=== PATIENT | male | born 1990 | race Caucasian/White ===

== ENCOUNTER 2020-12-19 15:39 | Emergency (ER) | payer OTHER, SELFPAY ==
--- NOTE | 2020-12-19 15:46 | ED.GENADULT ---
HPI - General Adult General Chief complaint: Upper Respiratory Infection Stated complaint: Congestion Time Seen by Provider: 12/19/20 15:46 Source: patient Mode of arrival: ambulatory Limitations: no limitations History of Present Illness HPI narrative: 30-year-old male patient presents to the [facility] with complaints of cold symptoms for the past 6 days. Patient states he has had fatigue, nausea and congestion. Patient states he was running a fever as high as 101 the first day or 2 of the symptoms. Denies any coughing, chest pain or shortness of breath at this time. Denies any vomiting or diarrhea. Denies any abdominal pain. Patient states the nausea is not new and is typically chronic for him. Patient denies taking anything for his symptoms. Patient denies getting the flu shot this year. Related Data Home Medications Medication Instructions Recorded Confirmed No Home Medications 12/19/20 12/19/20 Allergies Allergy/AdvReac Type Severity Reaction Status Date / Time No Known Allergies Allergy Verified 12/19/20 15:57 Review of Systems Review of Systems: Narrative: CONSTITUTIONAL: Positive subjective fever, denies chills, or sweats. EYES: Denies visual changes, redness, or discharge. ENT: Denies rhinorrhea, positive congestion, denies sore throat, or otalgia. CARDIOVASCULAR: Denies chest pain, palpitations, or edema. RESPIRATORY: Denies cough or dyspnea. GASTROINTESTINAL: Denies abdominal pain, positive nausea, denies vomiting, or diarrhea. GENITOURINARY: Denies dysuria or hematuria. SKIN: Denies rash or itching. MUSCULOSKELETAL: Denies back pain, joint pain, or myalgia. NEUROLOGIC: Denies headache, numbness, or weakness. Positive fatigue PSYCHIATRIC: Denies anxiety or depression. [facility] Past Medical History Medical History (Updated 12/19/20 @ 16:08 by BILLY Rdz) Anxiety GERD (gastroesophageal reflux disease) Substance abuse IV heroin and synthetic marijuana Social History Social History Smoking status: Light tobacco smoker Alcohol intake: never Gender identity (if verbalized by the patient): Male Comments At the time of my signature I agree with nursing past medical history, surgical, social, and family history. There is no relevant family history pertinent to the presenting complaint. Exam Narrative: Exam Narrative: GENERAL: Well-appearing, well-nourished, and in no acute distress. HEAD: Normocephalic, atraumatic. EYES: PERRLA and EOMI. ENT: Nares clear, no rhinorrhea or epistaxis. Mucous membranes moist. Posterior pharynx with no erythema, tonsil enlargement, exudates or lesions present. Bilateral TMs are clear no erythema or foreign bodies in the canal. NECK: Supple. No lymphadenopathy CHEST: Clear to auscultation. No respiratory distress. HEART: Regular rate and rhythm. No murmur heard. Normal peripheral pulses. ABDOMEN: Soft, nontender, nondistended, normal active bowel sounds. EXTREMITIES: Normal range of motion. No edema. SKIN: Warm, dry, no rash. NEURO: No focal deficits. Alert and oriented x3. Course Vital Signs Vital signs: Vital Signs Temperature 36.6 C 12/19/20 15:53 Pulse Rate 81 12/19/20 15:53 Respiratory Rate 18 12/19/20 15:53 Blood Pressure 118/65 12/19/20 15:53 Pulse Oximetry 99 12/19/20 15:53 Temperature 36.6 C 12/19/20 15:53 Pulse Rate 81 12/19/20 15:53 Respiratory Rate 18 12/19/20 15:53 Blood Pressure 118/65 12/19/20 15:53 Pulse Oximetry 99 12/19/20 15:53 Vital signs reviewed Medical Decision Making Differential Diagnosis Differential Diagnosis: Differential diagnosis: Allergic rhinitis, chronic sinusitis, tonsillitis, acute sinusitis, infectious mononucleosis, seasonal influenza, pertussis, diphtheria, meningococcal disease, viral syndrome, viral bronchitis, RSV. Discussed with patient that we did do a rapid Covid test on him which did come back negative. Alison
[2020-12-19 15:53] VITALS: BP 118/65; PULSE 81; RESP 18; TEMP 36.6; O2SAT 99
[2020-12-20 18:19] LABS: SARS-CoV-2 RNA PCR Negative
== END 2020-12-19 16:11 | disposition home or self-care (01) ==
PROVIDERS: Emergency Provider Nurse Practitioner Family
DX: Z20.822 Contact with and (suspected) exposure to COVID-19 (principal); K21.9 Gastro-esophageal reflux disease without esophagitis
CPT/HCPCS: 87426; 99213; C9803; G0463; U0003; U0005

== ENCOUNTER 2021-07-07 17:09 | Emergency (ER) | payer OTHER, SELFPAY ==
[2021-07-07 17:20] VITALS: BP 116/61; PULSE 78; RESP 18; TEMP 36.4; O2SAT 98
--- NOTE | 2021-07-07 17:39 | ED.URI ---
HPI - URI/Sore Throat General Chief Complaint: Upper Respiratory Infection Stated Complaint: Sore throat,Cough,Headache Source: patient and RN notes reviewed Limitations: no limitations History of Present Illness HPI Narrative: The unvaccinated patient, a smoker/drinker, who is a weeklong history of congestion, cough ,myalgias with headache and scratchy sore throat. No fever, earache, wheezing, loss of taste/smell, S OB, vomiting/diarrhea, CP. Symptoms are mild, that is worse upon awakening. Related Data Allergies Allergy/AdvReac Type Severity Reaction Status Date / Time No Known Allergies Allergy Verified 07/07/21 17:21 Review of Systems Review of Systems: General/Constitutional: No weight loss,fever Eyes: N0: Redness,discharge Ears/Nose/Throat: No: Epistaxis,ear discharge Respiratory: Denies: Hemoptysis Gastrointestinal: No Vomiting, Bleeding-rectal Skin: No Lumps, eruption Neurologic: No Focal Weakness,Sz Hematologic: Denies: Petechiae/Purpura Psychiatric: No: Suicida ideationl All Other Systems: Reviewed and Negative [facility] Past Medical History Medical History (Updated 07/07/21 @ 20:33 by Rian Hooper MD) Anxiety GERD (gastroesophageal reflux disease) Substance abuse IV heroin and synthetic marijuana Social History Social History Smoking status: Light tobacco smoker Alcohol intake: never Gender identity (if verbalized by the patient): Male Comments At time of signature, agree with nursing past medical, surgical, social and family history. There is no relevant family history pertinent to the presenting complaint Exam Narrative: General Appearance: Well appearing, Well nourished EYE: PERRLA, Conjunctiva clear Ears: Auditory canal normal, TM normal Nose: Rhinorrhea, Mucousal erythema Mouth/Throat: MM moist, Uvula midline, Pharyngeal erythema Neck: Supple, No adenopathy Respiratory: No respiratory distress, Breath sounds equal, Clear to auscultation Cardiovascular: RRR, No JVD Musculoskeletal: Non tender, Normal strength Skin: Warm, Dry Neurological: A&O x3, CN II-XII intact Psychiatric: Normal mood, Normal affect Course Vital Signs Vital signs: Vital Signs Temperature 97.6 F 07/07/21 17:20 Pulse Rate 78 08/28/21 17:20 Respiratory Rate 18 07/07/21 17:20 Blood Pressure 116/61 07/07/21 17:20 Pulse Oximetry 98 07/07/21 17:20 Temperature 97.6 F 07/07/21 17:20 Pulse Rate 78 07/07/21 17:20 Respiratory Rate 18 07/07/21 17:20 Blood Pressure 116/61 07/07/21 17:20 Pulse Oximetry 98 07/07/21 17:20 MDM - URI/Sore Throat Lab Data Labs: Lab Results 07/07/21 Range/Units 18:00 POC SARS CoV-2 Ag Negative (Negative) Discharge Plan Discharge Clinical Impression: Bronchitis Rhinitis Qualifiers: Rhinitis type: acute Qualified Code(s): J00 - Acute nasopharyngitis [common cold] Patient Disposition: Home, Self-Care Condition: Stable Instructions: Acute Bronchitis (ED) Prescriptions: New benzonatate [Tessalon Perles] 100 mg capsule 100 mg PO TID Qty: 20 RF: 1 azelastine 137 mcg (0.1 %) aerosol,spray 137 mcg NASAL Q12H Qty: 30 RF: 0 Other Ambulatory Orders: SARS-CoV-2 RNA, Qual RT-PCR (Routine) Location: Determined by Patient Ordered By: Rian Hooper Follow-up/Referrals: PHYSICIAN,ACCOUNT MANAGER [employer] [Primary Care Provider] -
== END 2021-07-07 18:04 | disposition home or self-care (01) ==
PROVIDERS: Emergency Provider Emergency Medicine
DX: J40 Bronchitis, not specified as acute or chronic (principal); J00 Acute nasopharyngitis [common cold]; Z20.822 Contact with and (suspected) exposure to COVID-19; K21.9 Gastro-esophageal reflux disease without esophagitis
CPT/HCPCS: 87426; 99213; C9803; G0463

== ENCOUNTER 2021-10-09 09:01 | Emergency (ER) | payer OTHER, SELFPAY ==
[2021-10-09 09:17] VITALS: BP 113/83; PULSE 77; RESP 16; TEMP 36.5; O2SAT 100
[2021-10-09 09:34] LABS: Basophils Absolute Auto 0.1 K/mm3 (0.0-0.1); Basophils Percent Auto 0.6 % (0.2-1.2); Eosinophils Absolute Auto 1.1 K/mm3 (0-0.3); Eosinophils Percent Auto 14.1 % (0-4.4); Hematocrit 49.6 % (42.0-52.0); Hemoglobin 17.8 g/dL (14.0-18.0); Immature Granulocyte Absolute 0.01 K/mm3 (0.00-0.031); Immature Granulocyte Percent A 0.1 % (0-0.5); Lymphocytes Absolute Auto 1.98 K/mm3 (0.9-3.2); Lymphocytes Percent Auto 24.6 % (18.3-44.2); Mean Corpuscular HGB Conc 35.9 g/dl (32-36); Mean Corpuscular Hemoglobin 32.1 pg (26-34); Mean Corpuscular Volume 89.4 fl (80-100); Monocytes Absolute Auto 1.1 K/mm3 (0.1-0.6); Monocytes Percent Auto 13.9 % (2.6-8.5); Neutrophils Absolute Auto 3.8 K/mm3 (1.3-6.7); Neutrophils Percent Auto 46.7 % (45.5-73.1); Platelet Count Result 263 k/mm3 (150-375); Red Blood Count 5.55 M/mm3 (4.6-6.20); Red Cell Distribution Width 11.3 % (11.5-14.5); White Blood Count 8.1 K/mm3 (4.5-10.0)
[2021-10-09 09:58] LABS: Alanine Aminotransferase 25 U/L (4-50); Albumin Level 5.2 g/dL (3.5-5.1); Alkaline Phosphatase 81 U/L (38-126); Anion Gap 17 mmol/L (8-16); Aspartate Amino Transferase 38 U/L (17-59); Bilirubin,Total 0.7 mg/dL (0.2-1.3); Blood Urea Nitrogen 25 mg/dL (9-20); Calcium 10.6 mg/dL (8.4-10.2); Carbon Dioxide 24 mmol/L (22-30); Chloride 100 mmol/L (98-107); Estimated CRCL calculation 85 ml/min; Estimated Glomerular Filt Rate > 60; Glucose 146 mg/dL (65-110); Lipase 41 U/L (23-300); Potassium 3.8 mmol/L (3.4-5.0); Sodium 141 mmol/L (137-145)
[2021-10-09 10:06] LABS: Atypical Lymphocytes Present; Platelet Estimate Adequate (Adequate)
[2021-10-09] MEDS: SODIUM CHLORIDE 0.9% IV 1,000 ML 999 ML IV CONT ×2 (12:22)
[2021-10-09] MEDS: diphenhydrAMINE HCl INJ 50 MG/ML VIAL 25 MG IV PUSH (12:23)
--- NOTE | 2021-10-09 12:23 | PC.NURSE ---
pt refusing zofran because he states it does not help and it messes with the dopamine receptors in his brain. stated he already felt better as soon as iv fluids iniated.
--- NOTE | 2021-10-09 13:30 | ED.GENADULT ---
HPI - General Adult General Chief complaint: Abdominal Pain Stated complaint: Vomiting Time Seen by Provider: 10/09/21 11:51 Source: patient Mode of arrival: ambulatory Limitations: no limitations History of Present Illness HPI narrative: Patient is a 31-year-old male with history of CHS presenting with 3 to 4 days of nausea and vomiting. Patient reports that he is addicted to marijuana use in has been evaluated and had multiple lab works, imaging CT scans and other evaluations by multiple providers and no abnormal cause was ever found.he reports his symptoms are triggered by marijuana use. He states that he stopped heroin usage many years ago however he has not yet been able to stop marijuana use. Patient reports that he has been given Haldol in the past but it caused his all his muscles to cramp. Patient reports he generally does needs a few liters of fluids ending he is able to leave. Patient denies any blood or mucus in his stool, constipation or diarrhea. He denies any fevers, cough, shortness of breath, chest pain. Related Data Allergies Allergy/AdvReac Type Severity Reaction Status Date / Time No Known Allergies Allergy Verified 07/07/21 17:21 Review of Systems Review of Systems: CONSTITUTIONAL: Reports chills denies fever or sweats. EYES: Denies visual changes, redness, or discharge. ENT: Denies rhinorrhea, congestion, sore throat, or otalgia. CARDIOVASCULAR: Denies chest pain, palpitations, or edema. RESPIRATORY: Denies cough or dyspnea. GASTROINTESTINAL: Reports nausea and vomiting denies constipation or diarrhea. GENITOURINARY: Denies dysuria or hematuria. SKIN: Denies rash or itching. MUSCULOSKELETAL: Denies back pain, joint pain, or myalgia. NEUROLOGIC: Denies headache, numbness, dizziness, or weakness. PSYCHIATRIC: Denies anxiety or depression. [facility] Past Medical History Medical History (Updated 10/09/21 @ 14:34 by Rosanna Antonio PA-C) Anxiety GERD (gastroesophageal reflux disease) Substance abuse IV heroin and synthetic marijuana Social History Social History Smoking status: Light tobacco smoker Alcohol intake: never Gender identity (if verbalized by the patient): Male Exam Narrative: GENERAL: Thin, slightly unkempt. Holding emesis bag. HEAD: Normocephalic, atraumatic. EYES: PERRLA and EOMI. CHEST: Clear to auscultation. No respiratory distress. No wheezes rales or rhonchi HEART: Regular rate and rhythm. No murmur heard. Normal peripheral pulses. ABDOMEN: Soft, nontender, nondistended, normal active bowel sounds. EXTREMITIES: Normal range of motion. No edema. SKIN: Warm, dry, no rash. NEURO: No focal deficits. Alert and oriented x3. PSYCH: Normal mood and affect. Course Vital Signs Vital signs: Vital Signs Temperature 97.7 F 10/09/21 09:17 Pulse Rate 77 10/09/21 09:17 Respiratory Rate 16 10/09/21 09:17 Blood Pressure 113/83 10/09/21 09:17 Pulse Oximetry 100 10/09/21 09:17 Temperature 97.7 F 10/09/21 09:17 Pulse Rate 77 10/09/21 09:17 Respiratory Rate 16 10/09/21 09:17 Blood Pressure 113/83 10/09/21 09:17 Pulse Oximetry 100 10/09/21 09:17 Medical Decision Making MDM Narrative Medical decision making narrative: Patient refuses all antiemetics.. Patient has not had any continued vomiting over the past few hours. Patient antiemetic given. Patient reports he has Zofran at home if needed. Patient has been instructed to stop marijuana usage and seek help if needed. Patient does not have any signs of acute surgical abdomen. Patient abdomen is not tender or rigid. Patient instructed to return to emergency department if he has any emergent symptoms. Vital Signs Vital Signs: Vital Signs Temperature 97.7 F 10/09/21 09:17 Pulse Rate 77 10/09/21 09:17 Respiratory Rate 16 10/09/21 09:17 Blood Pressure 113/83 10/09/21 09:17 Pulse Oximetry 100 10/09/21 09:17 Temperature 97
[2021-10-09 14:21] LABS: Add Urine Microscopic? YES; Appearance Urine Clear (Clear); Bilirubin Urine Negative (Negative); Blood Urine Negative (Negative); Color Urine Yellow (Yellow); Glucose Urine UA Negative (Negative); Ketones Urine 1+ mg/dL (Negative); Leukocyte Esterase Ur Negative LEU/UL (Negative); Mucus Urine Rare /lpf; Nitrate Urine Negative (Negative); Protein Urine Negative (Negative); RBC Urine 0-2 /hpf (0-2); Specific Grav Ur 1.017 (1.001-1.035); Urobilinogen Urine Negative mg/dL (<2.0); WBC Urine 0-3 /hpf
--- NOTE | 2021-10-09 14:50 | PC.NURSE ---
pt refuses offer of prescription for zofran or reglan. pt requesting enough iv fluids to make him not have to drink for next 2 days. pt aware that he should be adequaltely hydrated at home but that he needs to continue hydration at home.
[2021-10-09 15:07] LABS: Amphetamine Screen Urine Negative (Negative); Barbiturate Screen Urine Negative (Negative); Benzodiazepines Screen Urine Positive (Negative); Cannabinoid Screen Urine Positive (Negative); Cocaine Screen Urine Negative (Negative); Methadone Screen Urine Negative (Negative); Opiate Screen Urine Negative (Negative); Phencyclidine Screen Urine Negative (Negative)
== END 2021-10-09 15:00 | disposition home or self-care (01) ==
PROVIDERS: Emergency Medicine; Physician Assistant; Emergency Provider Emergency Medicine
DX: R11.2 Nausea with vomiting, unspecified (principal); K21.9 Gastro-esophageal reflux disease without esophagitis; F41.9 Anxiety disorder, unspecified
CPT/HCPCS: 36415; 80053; 80307; 81001; 83690; 85025; 96361; 96374; 99284; J1200; J7030

== ENCOUNTER 2022-11-15 15:07 | Emergency (ER) | payer OTHER, SELFPAY ==
[2022-11-15 15:34] VITALS: BP 118/71; PULSE 112; RESP 18; TEMP 37.2; O2SAT 100
--- NOTE | 2022-11-15 16:08 | ED.ABDPAIN ---
HPI - Abdominal Pain General Chief Complaint: Abdominal Pain Stated Complaint: abdominal pain Time Seen by Provider: 11/15/22 16:08 Source: patient and RN notes reviewed Mode of arrival: ambulatory Limitations: no limitations History of Present Illness HPI narrative: 32-year-old male presented for complaint of abdominal pain, nausea, and vomiting for 1 week. Patient states I have issues like this. Stating he believes he has cannabinoid hyperemesis syndrome. Patient states that usually lasts days to 1 week. he states the pain becomes so severe he induces vomiting. He states I think what happened is my small intestine becomes inflamed from not getting enough water, then I drink a large amount of water, get bloated, and then make myself vomit due to the pain from bloating. He states it is like OCD. LBM 6 days, endorses decreased urine output. last normal food intake was over 6 days, stating he has had some bites of mashed potatoes and a grape since onset. He will drink large amounts of fluids then induce vomiting, states he has filled 11 gallon trash cans since onset. Denies emesis today. Smoked marijuana prior to arrival. Smokes about 5 cigarettes/day. Denies other drug use. Drinks about 5 beers/week. Related Data Home Medications Medication Instructions Recorded Confirmed bupropion HCl 150 mg tablet,12 hr 150 mg PO DAILY 11/15/22 11/15/22 sustained-release (Wellbutrin SR) Allergies Allergy/AdvReac Type Severity Reaction Status Date / Time No Known Allergies Allergy Verified 11/15/22 16:00 Review of Systems Review of Systems: CONSTITUTIONAL: Denies body aches, fever, chills ENT: Denies rhinorrhea, congestion CARDIOVASCULAR: Denies chest pain, palpitations, or edema. RESPIRATORY: Denies cough or dyspnea. GASTROINTESTINAL: Endorses abdominal pain, nausea, vomiting, Denies hematochezia, melena, hematemesis GENITOURINARY: Denies dysuria, hematuria, or CVA tenderness. SKIN: Denies rash, itching, or wounds. MUSCULOSKELETAL: Denies back pain, joint pain, or myalgia. NEUROLOGIC: Denies headache, numbness, tingling, or weakness. All systems reviewed & are unremarkable except as noted in HPI and below PMFSH Past Medical History Medical History Anxiety GERD (gastroesophageal reflux disease) Substance abuse IV heroin and synthetic marijuana Social History Social History Smoking status: Light tobacco smoker Alcohol intake: never Gender identity (if verbalized by the patient): Male Comments At time of signature, I have reviewed and agree with nursing past medical, surgical, social and family history unless otherwise noted. Please see nursing chart for further information. There is no relevant family history pertinent to the presenting complaint Exam Narrative: GENERAL: ill-appearing, and in no acute distress. Appears older than stated age EYES: EOMI. Conjunctivae normal. ENT: Mucous membranes pink and moist. CHEST: Clear to auscultation. HEART: Regular rate and rhythm. No murmur appreciated. Normal peripheral pulses. ABDOMEN: abd soft, nondistended, normal active bowel sounds. Does not appear to have significant pain to abdomen with palpation, but reports pain to opposite side of palpation; No guarding, asymmetry EXTREMITIES: Normal range of motion. No edema. SKIN: Warm, dry, no rash. Capillary refill normal. Normal skin turgor. NEURO: No focal deficits. Alert and oriented x3. PSYCH: anxious Course Course Emergency Course: Patient is aware of diagnosis, understands and agrees to treatment plan. Anticipatory guidance given. Patient agrees to follow-up as directed and is aware of reasons to seek care at the emergency department. Portions of this record may have been created with voice recognition software Level of Care: Express Care Visit Vital Signs Vital signs: Vit
[2022-11-15] MEDS: ONDANSETRON HCL ODT 4 MG TABLET SUBLINGUAL (16:25)
== END 2022-11-15 16:57 | disposition home or self-care (01) ==
PROVIDERS: Emergency Provider Nurse Practitioner Family; PCP Family Medicine
DX: R10.9 Unspecified abdominal pain (principal); F17.210 Nicotine dependence, cigarettes, uncomplicated; F41.9 Anxiety disorder, unspecified; K21.9 Gastro-esophageal reflux disease without esophagitis
CPT/HCPCS: 99213; A9270; G0463

== ENCOUNTER 2024-10-20 11:42 | Emergency (ER) | payer OTHER, SELFPAY ==
[2024-10-20 12:00] VITALS: BP 125/70; PULSE 66; RESP 16; TEMP 36.7; O2SAT 100
--- NOTE | 2024-10-20 12:39 | ED_ITS ---
HPI - Nausea/Vomiting/Diarrhea General Chief complaint: Nausea/Vomiting/Diarrhea Stated complaint: fever/vomiting Time Seen by Provider: 10/20/24 12:26 Source: patient and RN notes reviewed Mode of arrival: ambulatory Limitations: no limitations History of Present Illness HPI Narrative: Patient presents today complaining of hundreds of episodes of vomiting for the last 2 days. States he has been 8-9 hours in the bathroom yesterday vomiting. He is also complaining of subjective fever, body aches, and epigastric discomfort. Reports he has had several episodes such as this every year since he was 17, then states he has episodes such as this when he has COVID or influenza and would like to be tested for these today. He has tried melatonin for his symptoms as he states if he can get back to sleep he can usually stop the cycle of his vomiting when he wakes up. He has been evaluated several times by gastroenterologists in the past he states have offered no help. He has also been to the ER several times in the past for fluids and antiemetics, and CTs with no definitive diagnosis of his symptoms. Patient states today is feeling much better. He has not had a vomiting episode since 9:00 a.m. this morning. He has been able to keep down fluids since that time. Related Data Allergies Allergy/AdvReac Type Severity Reaction Status Date / Time No Known Allergies Allergy Verified 10/20/24 12:10 Review of Systems Review of Systems: CONSTITUTIONAL: Denies fever, chills, or sweats.+ body aches EYES: Denies visual changes, redness, or discharge. ENT: Denies rhinorrhea, congestion, sore throat, or otalgia. CARDIOVASCULAR: Denies chest pain, palpitations, or edema. RESPIRATORY: Denies cough or dyspnea. GASTROINTESTINAL: Denies diarrhea.+ nausea, vomiting, epigastric discomfort GENITOURINARY: Denies dysuria or hematuria. SKIN: Denies rash, itching, or wounds. MUSCULOSKELETAL: Denies back pain, joint pain, or myalgia. NEUROLOGIC: Denies headache, numbness, tingling, or weakness. PSYCH: Denies depression or anxiety. [facility] Past Medical History Medical History Substance abuse IV heroin and synthetic marijuana GERD (gastroesophageal reflux disease) Anxiety Social History Social History Smoking status: Light tobacco smoker Alcohol intake: never Gender identity (if verbalized by the patient): Male Comments At time of signature, I have reviewed and agree with nursing past medical, surgical, social and family history unless otherwise noted. Please see nursing chart for further information. There is no relevant family history pertinent to the presenting complaint Exam Narrative: GENERAL: Well-appearing, well-nourished, and in no acute distress. HEAD: Normocephalic, atraumatic. EYES: EOMI. No redness or drainage. Conjunctivae normal. ENT: Mucous membranes pink and moist. Nares clear. No rhinorrhea. Throat normal. Uvula midline. NECK: Normal AROM. CHEST: No respiratory distress. Clear to auscultation. HEART: Regular rate and rhythm. No murmur appreciated. ABDOMEN: Soft, nontender, nondistended, normal active bowel sounds. EXTREMITIES: Normal range of motion. No edema. SKIN: Warm, dry, no rash. Capillary refill normal. Normal skin turgor. NEURO: No focal deficits. Alert and oriented x3. Gait steady. PSYCH: Normal affect. No signs of depression or anxiety. Course Course Level of Care: Express Care Visit Vital Signs Vital signs: Vital Signs Temperature 98.0 F 10/20/24 12:00 Pulse Rate 66 10/20/24 12:00 Respiratory Rate 16 10/20/24 12:00 Blood Pressure 125/70 10/20/24 12:00 Pulse Oximetry 100 10/20/24 12:00 Oxygen Delivery Room Air 10/20/24 12:00 Temperature 98.0 F 10/20/24 12:00 Pulse Rate 66 10/20/24 12:00 Respiratory Rate 16 10/20/24 12:00 Blood Pressure 125/70 10/20/24 12:00 Pulse Oximetry 100 10/20/24 12:00 Oxygen Delivery Room Air 10/20/24 12:00 Reviewed MDM - Nausea/Vomiting/Diarrhea MDM Narrative Medical decision making narrative: COVID and influenza negative. Patient is not currently vomiting. Prescription for Zofran sent to pharmacy, as patient states this has helped him in the past. This is a chronic issue for patient, not in acute one. He will manage his symptoms at home and will go to the ER if he develops any dehydration or worsening symptoms. Differential Diagnosis Differential diagnosis: Likely food poisoning, gastroenteritis, dehydration and other (Cyclic vomiting syndrome) Lab Data Attestation: I reviewed the patient's lab results. Lab results narrative: COVID and influenza negative Critical Care Time Critical Care Time Critical Care Time: No Discharge Plan Discharge Clinical Impression: Vomiting Qualifiers: Vomiting type: unspecified Nausea presence: with nausea Qualified Code(s): R11.2 - Nausea with vomiting, unspecified Patient Disposition: Home, Self-Care Condition: Stable Instructions: Acute Nausea and Vomiting (DC) Additional Instructions: Your COVID and influenza tests are negative today. Please take the Zofran if needed for any additional vomiting. Stay way from any foods that may be irritating to your esophagus or stomach such as citrus or tomato products, fried or salty foods, caffeine etc.. Follow-up with your PCP with any additional concerns. Your blood pressure was elevated above 120/80 today at Urgent Care. This puts you above the threshold for follow up. Please schedule a followup visit with your personal physician as soon as possible, for further evaluation and treatment. Even blood pressure exceeding 120/80 may indicate pre-hypertension. Patient Language: Sami Prescriptions: New ondansetron 4 mg tablet,disintegrating 4 mg PO TID PRN (Reason: nausea and vomiting) Qty: 15 0RF Follow-up/Referrals: PHYSICIAN,NUCLEAR TECHNICIAN [Primary Care Provider] - Stand Alone Forms: Work/School Release IP Time of Disposition: 12:41
[2024-10-20 13:04] LABS: EDINFLUASCREEN Negative (Negative); EDINFLUBSCREEN Negative (Negative)
[2024-10-20 14:03] LABS: EDCOVIDSCREEN Yes (Negative)
== END 2024-10-20 12:48 | disposition home or self-care (01) ==
PROVIDERS: Emergency Provider Nurse Practitioner; Referring Provider Emergency Medicine
DX: R11.2 Nausea with vomiting, unspecified (principal); Z20.822 Contact with and (suspected) exposure to COVID-19; F17.200 Nicotine dependence, unspecified, uncomplicated; K21.9 Gastro-esophageal reflux disease without esophagitis
CPT/HCPCS: 87426; 87804; 99213; G0463

== ENCOUNTER 2025-04-14 11:09 | Emergency (ER) | payer OTHER, SELFPAY ==
--- NOTE | 2025-04-14 11:15 | ED.ABDPAIN ---
HPI - Abdominal Pain General Chief Complaint: Abdominal Pain Stated Complaint: chest and stomach pain Time Seen by Provider: 04/14/25 11:20 Source: patient, RN notes reviewed and old records reviewed Mode of arrival: ambulatory Limitations: no limitations History of Present Illness HPI narrative: 35-year-old male presents to the [facility] with chronic abdominal pain. Has a history of abdominal pain, nausea vomiting. States that he has reduce the amount of marijuana intake. States he has seen multiple GI doctors with no diagnoses. Patient states that on Friday and Friday he had 2 episodes of left-sided chest pain with some shortness of breath and vomiting. Patient denies any symptoms today. States that he was hoping to come in to ?get things started. ? States that he is due to go back to work on Friday, has an appointment with primary care provider on Friday but wanted further evaluations before he return to work. Again patient with currently no symptoms during exam. States that he is out of Zofran and requesting a refill Related Data Allergies Allergy/AdvReac Type Severity Reaction Status Date / Time No Known Allergies Allergy Verified 04/14/25 11:19 Review of Systems Review of Systems: All systems reviewed & are unremarkable except as noted in HPI and below Constitutional: Constitutional: Reports no additional constitutional complaints ENT: Reports system reviewed and no additional complaints, except as documented Cardiovascular: Cardiovascular: Reports as per HPI, Reports chest pain and Reports dyspnea Respiratory: Respiratory: Reports no additional respiratory complaints, Denies chest congestion, Denies cough and Denies dyspnea Gastrointestinal: Gastrointestinal: Reports as per HPI, Reports abdominal pain, Reports nausea and Reports vomiting Musculoskeletal: Musculoskeletal: Reports no additional musculoskeletal complaints Integumentary/Breasts: Skin/Breast: Reports system reviewed and no additional complaints, except as docu [facility] Past Medical History Medical History Substance abuse IV heroin and synthetic marijuana GERD (gastroesophageal reflux disease) Anxiety Social History Social History Smoking status: Light tobacco smoker Alcohol intake: never Gender identity (if verbalized by the patient): Male Comments At the time of my signature, I reviewed and agree with the nursing past medical, surgical, social, and family history. There is no relevant family history pertinent to the patient complaint. Exam Const: General: cooperative, healthy appearing, comfortable, no acute distress, well developed, alert and well nourished Nutritional Appearance: well nourished Orientation/consciousness: patient oriented x3 Limitations: no limitations HENMT: Head: normal to inspection Ears: hearing grossly normal bilaterally, external ears normal, TM's normal bilaterally, EAC's normal, mastoids normal and no periauricular adenopathy Mouth: Yes Normal oral and palatal mucosa present, Yes lip normal, Yes tongue normal and Yes moist mucous membranes Throat: posterior oropharynx normal, uvula midline and no uvular edema Eyes: General: appearance normal, both eyes and all related structures Alignment and Position: alignment normal Neck: Neck: normal visual inspection, full ROM, no lymphadenopathy and no meningeal signs Chest: Chest palpation & inspection: normal inspection of the chest Resp: Effort & Inspection: normal respiratory effort and able to speak in complete sentences Auscultation: clear to auscultation bilaterally, no crackles, no rales, no rhonchi and no wheezes Cardio: Rate: regular rate GI: GI Palp: No abdominal tenderness Auscultation: normal bowel sounds Skin: General skin exam: normal color and no rashes or lesions noted Neuro: General: patient oriented x3, gait normal, moves all extremities and no meningeal signs Cognition (Neuro): normal cognition Speech: normal speech Gait exam (Neuro): Normal gait present Extrem: General: normal to inspection, full ROM, capillary refill normal and normal gait Psych: Appearance: grossly normal and well kempt Mental Status: mental status grossly normal Speech and movement: Normal speech and movement present and Clear speech present Affect: normal affect Attitude: cooperative Course Course Level of Care: Express Care Visit Vital Signs Vital signs: Vital Signs Temperature 97.9 F 04/14/25 11:17 Pulse Rate 86 04/14/25 11:17 Respiratory Rate 16 04/14/25 11:17 Blood Pressure 113/75 04/14/25 11:17 Pulse Oximetry 04/14/25 11:17 Temperature 97.9 F 04/14/25 11:17 Pulse Rate 86 04/14/25 11:17 Respiratory Rate 16 04/14/25 11:17 Blood Pressure 113/75 04/14/25 11:17 Pulse Oximetry 100 04/14/25 11:17 Reviewed MDM - Abdominal Pain MDM Narrative Medical decision making narrative: Patient sitting in exam room. Patient is not toxic in appearance. Patient presents with history of chronic abdominal pain. States that on Friday and Friday he had episodes of left-sided chest pain. Currently no symptoms. Was hoping to be evaluated and get referrals to GI and Cardiology. Has an appointment on Friday with his primary care provider. Explained that primary care doctor will make appropriate referrals. If symptoms return especially the chest pain he should be evaluated in the emergency room which he verbalized understanding Discharge instructions reviewed with patient, as well as provided in writing per nursing staff. The instructions also include specific and strict return/GO TO THE ER as well as f/u information. All questions have been answered, and the patient deny any further questions with discharge and discharge plan. Some parts of this dictation were generated by voice recognition software and may contain typographical and/or grammatical inaccuracies. Differential Diagnosis Differential diagnosis: Likely abdominal pain, gastroenteritis, pancreatitis and small bowel obstruction ECG Data EKG #1: Attestation: I personally reviewed and interpreted this ECG as follows: ECG completion date: 04/14/25 ECG completion time: 11:23 Prior ECG tracings: not available for review Interpretation: Sinus rhythm, incomplete right bundle branch block, borderline EKG, ventricular rate of 69, TN interval 150, QRS duration 98. No ST elevation or depression noted. Critical Care Time Critical Care Time Critical Care Time: No Discharge Plan Discharge Clinical Impression: Hx of abdominal pain, History of nausea and vomiting, Hx of chest pain Patient Disposition: Home Condition: Stable Instructions: Antibiotic Form, Acute Nausea and Vomiting (DC) Patient Language: Sierra Leonean Prescriptions: New ondansetron HCl 4 mg tablet 4 mg PO Q8H PRN (Reason: nausea and vomiting) Qty: 10 0RF No Action ondansetron 4 mg tablet,disintegrating 4 mg PO TID PRN (Reason: nausea and vomiting) Qty: 15 0RF Follow-up/Referrals: Schuyler,MD Rubén [Primary Care Provider] - 2 Weeks ([facility] follow up) Time of Disposition: 11:27
--- NOTE | 2025-04-14 11:16 | ECG_ITS ---
Test Date: 2025-04-14 11:23:38 Measurements Intervals [place] Rate: 69 P: 55 TX: 150 QRS: 90 QRSD: 98 T: 72 QT: 352 QTc: 379 Interpretive Statements SINUS RHYTHM INCOMPLETE RIGHT BUNDLE BRANCH BLOCK PEAKED T WAVES- CONSIDER HYPERKALEMIA BASELINE ARTIFACT- I, II, AVR, AVL, AVF ABNORMAL ECG No previous ECG available for comparison Electronically Signed On 04-14-2025 11:25:16 CDT by José Miguel Wright D.O.
[2025-04-14 11:17] VITALS: BP 113/75; PULSE 86; RESP 16; TEMP 36.6; O2SAT 100
== END 2025-04-14 12:25 | disposition home or self-care (01) ==
PROVIDERS: Emergency Provider Nurse Practitioner; PCP Family Medicine
DX: R10.9 Unspecified abdominal pain (principal); R11.2 Nausea with vomiting, unspecified; R07.9 Chest pain, unspecified
CPT/HCPCS: 93005; 99213; G0463

== ENCOUNTER 2025-05-28 16:04 | Emergency (ER) | payer OTHER, SELFPAY ==
--- OUTSIDE RECORDS SUMMARY | 2025-05-28 16:06 | XMS_ITS | Clinical Summary ---
Author Organization [facility] Address [address] [place] [address] Care Team Providers Care Wire Wheeler Name Role Phone None, Provider MD Primary Care Provider Unavaila ble Allergies No known active allergies Medications meclizine 25 MG tablet Take 25 mg by mouth 3 (three) times daily as needed. Active Capsaicin 0.05 % Gel Apply cream to abdomen when having symptoms up to four times a day. 60 g 9 Active buPROPion SR (WELLBUTRIN SR) 150 MG 12 hr tablet Take 150 mg by mouth 2 (two) times daily. 2 Active ondansetron (ZOFRAN-ODT) 4 MG disintegrating tablet Take 4 mg by mouth every 8 (eight) hours as needed for Nausea. Active Active Problems Problem Noted Date Diagnosed Date Hypokalemia 11/16/2022 Cannabis abuse 03/03/2022 Chronic abdominal pain 03/03/2022 Diarrhea of presumed infectious origin 7 Family History Medical History Relation Comments Hypothyroidism Mother Relation Status Comments Mother Social History Tobacco Use Types Packs/Day Years Used Date Smoking Tobacco: Every Day Smokeless Tobacco: Never Alcohol Use Standard Drinks/Week Comments Yes 0 (1 standard drink = 0.6 oz pur e alcohol) socially Humiliation, Afraid, Rape, and Kick questionnair e Answer Date Recorded Within the last year, have y ou been afraid of your partner or ex-partner? No 11/16/2022 Within the last year, have y ou been humiliated or emotionally abused in other ways by your partner or ex-partner? No Within the last year, have y ou been kicked, hit, slapped, or otherwise physically hurt by your partner or ex-partner? No 11/16/2022 Within the last year, have y ou been raped or forced to have any kind of sexual activity by your partner or ex-partner? No 11/16/2022 AUDIT-C Answer Date Recorded Frequency of Alcohol Consumption Never 08/23/2019 Average Number of Drinks Not on file 019 Frequency of Binge Drinking Not on file 08/10 Overall Financial Resource Strain (CARDIA) Answe r Date Recorded How hard is it for you to pa y for the very basics like food, housing, medical care, and heating? Not hard at all 11/16/2022 Hunger Vital Sign Answer Date Recorded Within the past 12 months, y ou worried that your food would run out before you got the money to buy more. Never true 11/16/19 23 Within the past 12 months, t he food you bought just didn't last and you didn't have money to get more. Never true 11/16/2022 PRAPARE - Transportation Answer Date Re corded In the past 12 months, has l ack of transportation kept you from medical appointments or from getting medications? No 05/2023 In the past 12 months, has l ack of transportation kept you from meetings, work, or from getting things needed for daily living? No 11/16/2022 Housing Stability Vital Sign Answer Odin e Recorded In the last 12 months, was t here a time when you were not able to pay the mortgage or rent on time? No 11/16/2022 In the last 12 months, how many places have you lived? 1 11/16/2022 In the last 12 months, was t here a time when you did not have a steady place to sleep or slept in a half-way (including now)? No 11/16/2022 Sex and Gender Information Value Date Recorded Sex Assigned at Not on file Legal Sex Male 7:38 PM CDT Gender Identity Not on file Sexual Orientation Not on file Last Filed Vital Signs Vital Sign Reading Time Taken Comments Blood Pressure 134/62 11/17/2022 5:00 AM WELDING ESTIMATOR Pulse 73 11/17/2022 7:00 AM WELDING ESTIMATOR Temperature 36.4 C (97.5 F) 11/17/2022 7:00 AM WELDING ESTIMATOR Respiratory Rate 16 11/17/2022 7:00 AM WELDING ESTIMATOR Oxygen Saturation 99% 11/17/2022 7:00 AM WELDING ESTIMATOR Inhaled Oxygen Concentration - - Weight 58.3 kg (128 lb 8.5 oz) 11/17/2022 5:00 A M WELDING ESTIMATOR Height 180.3 cm (5' 11) 11/15/2022 11:31 PM WELDING ESTIMATOR Body Mass Index 17.93 11/15/2022 11:31 PM WELDING ESTIMATOR Plan of Treatment Health Maintenance Due Date Last Done Comments Annual Physical 1995 Hepatitis C 2010 Hepatitis B Vaccines (1 of 3 - 19+ 3-dose series) 2011 Pneumococcal Vaccine: Pediatrics (0 to 5 Years) and At-Risk Patients (6 to 49 Years) (1 of 2 - PCV) 2011 COVID-19 Vaccine ( - 2023-2 5 season) 2024 DTaP, Tdap and Td Vaccines ( 2 - Td or Tdap) 02/06/2026 02/07/2016, 11/10/2015 HPV Vaccines Aged Out No longer eligi ble based on patient's age to complete this topic Meningococcal B Vaccine Aged Out No l onger eligible based on patient's age to complete this topic Meningococcal Vaccine Aged Out No moy aries eligible based on patient's age to complete this topic RSV Immunizations Under 20 Months Aged Out No longer eligible b ased on patient's age to complete this topic [place] [address] [place] [address] Advance Directives * Full Code (Latest Code Status on File) Date Activated Date Inactivated Comments 11/16/2022 9:00 AM 11/17/2022 2:43 PM Care Teams Wire Wheeler Relationship Specialty Start Date End Date None, Provider, PCP - General 08/23/19
--- OUTSIDE RECORDS SUMMARY | 2025-05-28 16:06 | XMS_ITS | Referral Summary ---
Author Organization [facility] Address [address] [place] [address] Care Team Providers Care Production Administrative Assistant Name Role Phone Jose Lagunas MD Primary Care Provider [phone] Allergies No known active allergies Medications raNITIdine (ZANTAC) 150 mg tablet 7 Active hyoscyamine ER (LEVBID) 0.375 mg 12 hr tabletIndicatio ns:diarrhea Take 0.375 mg by mouth every 12 (twelve) hours as needed for cramping. Active sodium, potassium & mag sulfates (SUPREP BOWEL KIT) 17.5-3.13-1.6 gram recon solnIndications :Bowel Evacuation Mix bottle of Suprep with water and drink at 4pm, repeat and drink at 10pm day before procedure 354 mL 7 Active Active Problems Problem Noted Date Diagnosed Date Generalized abdominal pain 06/12/2017 Diarrhea of presumed infectious origin 7 Social History Tobacco Use Types Packs/Day Years Used Date Smoking Tobacco: Every Day Cigarettes Smokeless Tobacco: Never Alcohol Use Standard Drinks/Week Comments Yes 0 (1 standard drink = 0.6 oz pur e alcohol) Personal Safety Answer Date Recorded Getting School Help Needed Not on file 01/22 Sex and Gender Information Value Date Recorded Sex Assigned at Not on file 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 Gender Identity Not on file Sexual Orientation Not on file Last Filed Vital Signs Vital Sign Reading Time Taken Comments Blood Pressure 104/60 06/12/2017 9:16 AM CDT Pulse 74 06/12/2017 9:16 AM CDT Temperature - - Respiratory Rate 16 06/12/2017 9:16 AM CDT Oxygen Saturation - - Inhaled Oxygen Concentration - - Weight 60.8 kg (134 lb 1.6 oz) 06/12/2017 9:16 A M CDT Height 177.8 cm (5' 10) 06/12/2017 9:16 AM CDT Body Mass Index 19.24 06/12/2017 9:16 AM CDT Plan of Treatment Not on file Insurance [facility] Care Teams Production Administrative Assistant Relationship Specialty Start Date End Date Jose Lagunas MD [address] [place] [id number] PCP - General 06/27/17
--- OUTSIDE RECORDS SUMMARY | 2025-05-28 16:06 | XMS_ITS | Clinical Summary ---
Author Organization [facility] Address [address] [place] [address] Care Team Providers Care Livestock Sales Representative Name Role Phone John PICKERING MD, Julio Santiago Primary Care Provider [phone] Source Comments [facility] [employer],non-owned Affiliates and Associated Physician Practices is amultiple site organization consisting of ambulatory clinics and hospital sitesin [place], [place], [place] and [place]. This disclosure is being madepursuant to the Care Everywhere program and may not contain all information available regarding this patient. Last updated 18.[facility] [employer] Allergies No known active allergies Medications * Be aware that medications may not be up to date on this document. Alwaysverify current medications with the patient. buPROPion SR 12hr (WELLBUTRIN-SR) 150 MG tablet Take 150 mg by mouth 2 times daily 02/20/2022 Active POTASSIUM PO Take by mouth once daily Active CALCIUM-MAGNESIU M-ZINC PO Take by mouth once daily Active [place]-3 Fatty Acids (FISH OIL PO) Take by mouth once daily Active Ferrous Sulfate (IRON PO) Take by mouth once daily Active Menaquinone-7 (VITAMIN K2 PO) Take by mouth once daily Active Multiple Vitamin (MULTIVITAMIN PO) Active Active Problems Problem Noted Date Diagnosed Date Marijuana abuse 03/03/2022 Chronic abdominal pain 03/03/2022 Immunizations Immunization Administration Dates Next Due TDAP (7yrs+) 02/07/2016 Family History Medical History Relation Name Comments Schizophrenia Paternal Grandmother Schizophrenia Paternal Uncle Relation Name Status Comments Paternal Grandmother Paternal Uncle Other Social History Tobacco Use Types Packs/Day Years Used Date Smoking Tobacco: Never Smokeless Tobacco: Never Alcohol Use Standard Drinks/Week Comments Yes 3 (1 standard drink = 0.6 oz pur e alcohol) PHQ-2 Answer Date Recorded PHQ2 TOTAL SCORE 0 02/27/2022 Sex and Gender Information Value Date Recorded Sex Assigned at Not on file 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 Gender Identity Not on file Sexual Orientation Not on file Last Filed Vital Signs Vital Sign Reading Time Taken Comments Blood Pressure 110/68 02/27/2022 1:45 PM CDT Pulse 89 02/27/2022 1:45 PM CDT Temperature 37.2 C (98.9 F) 02/27/2022 1:45 PM CDT Respiratory Rate - - Oxygen Saturation 97% 02/27/2022 1:45 PM CDT Inhaled Oxygen Concentration - - Weight 59.4 kg (131 lb) 02/27/2022 1:45 PM CDT Height - - Body Mass Index - - Plan of Treatment Health Maintenance Due Date Last Done Comments HIV SCREENING 2007 HEPATITIS C SCREENING 03/20/2010 HEPATITIS B VACCINE (1 of 3 - 19+ 3-dose series) 2011 HPV VACCINE (1 - 3-dose SCDM series) 2019 COVID-19 VACCINE ( - 2023-2 5 season) 2024 DEPRESSION SCREENING 11/10/2024 06/24/2022 INFLUENZA VACCINE (#1) 2025 DTAP/TDAP/TD VACCINES (2 - T d or Tdap) 02/06/2026 02/07/2016 ZOSTER VACCINE (1 of 2) 2042 HIB VACCINE Aged Out No longer eligi ble based on patient's age to complete this topic MENINGOCOCCAL (Group B) VACC INE SHARED DECISION-MAKING Aged Out No longer eligibl e based on patient's age to complete this topic MENINGOCOCCAL GROUPS A/C/Y/W VACCINE Aged Out No longer eligible b ased on patient's age to complete this topic PNEUMOCOCCAL VACCINE Aged Out No long er eligible based on patient's age to complete this topic Insurance [facility] Care Teams Livestock Sales Representative Relationship Specialty Start Date End Date Julio Lopez III, MD [address] [id number] PCP - General 12/28/21
--- OUTSIDE RECORDS SUMMARY | 2025-05-28 16:06 | XMS_ITS | Clinical Summary ---
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 Gender Identity Not on file Sexual Orientation Not on file Obstetrics History Last Filed Vital Signs Vital Sign Reading [...] 06/12/2017 9:16 AM CDT Plan of Treatment Health Maintenance Due Date Last Done Comments Hepatitis C Screening 1992 Varicella Vaccines (1 of 2 - 13+ 2-dose series) 2005 Hepatitis B Screening 2010 Regular Well Visit/Exam 18-64 2010 Pneumococcal vaccine <65 (1 of 2 - PCV) 2011 Depression Screening 06/12/2018 06/12/2017 Influenza Vaccine (#1) 2025 DTaP/Tdap/Td Vaccine (2 - Td or Tdap) 02/06/2026 02/07/2016 HPV Vaccines Aged Out No longer eligi ble based on patient's age to complete this topic Insurance [employer] Care Teams Shoe Repairman Relationship Specialty Start Date End Date Jose Lagunas MD [address] [place] [id number] [facility] - General 06/27/17
--- OUTSIDE RECORDS SUMMARY | 2025-05-28 16:06 | XMS_ITS | Data Portability ---
Author Organization [facility], Main Office Address [address] [place] [address] Care Team Providers Care Director Business Integration Name Role Phone PAYAN RUBÉN Primary Care Provider Assessment Encounter Date Assessment Date Assessment LastModified by Organization Details LastModified Time 07/23/2023 07/23/2023 D/w pt in detail about his findings and further plan of care. Explained about different options for this. Meds as directed. Advised pt to talk with close friend/family member on a regular basis. Educated about alarming symptoms to monitor at home and call us back Or get checked in ED. Pt verbalized understanding it. Cont f/u with Psych at [facility] as per schedule. F/u in few weeks as directed. [email or web address] Not available 07/23/2023 17:01:32 08/13/2023 08/13/2023 33 yo M with - WELL ADULT VISIT - ADHD - ANXIETY - IBS - FOOD ALLERGIES - SMOKER D/w pt in detail about his findings and further plan of care. Will do routine labs, cxr. Will refer pt to Industrial Con[employer]or Belt Repairer. Meds as directed. Advised pt to talk with close friend/family member on a regular basis. Educated about alarming symptoms to monitor at home and call us back Or get checked in ED. Pt verbalized understanding it. Diet and exercise explained in detail. Safe sex education given. F/u with Industrial Con[employer]or Belt Repairer as per schedule. Cont f/u with Psych at [facility] as per schedule. HM: Flu - Pt declined. Tdap, Gardasil - At pharmacy/HD. F/u in 2 weeks. Annual labs in 09/02. [email or web address] Not available 08/13/2023 09:40:04 09/04/2023 09/04/2023 33 yo M with - ADHD - ANXIETY - IBS - FOOD ALLERGIES - SMOKER Annual labs: 08/13/23. D/w pt in detail about his findings, recent labs and further plan of care. Meds as directed. Advised pt to talk with close friend/family member on a regular basis. Educated about alarming symptoms to monitor at home and call us back Or get checked in ED. Pt verbalized understanding it. Diet and exercise explained in detail. Safe sex education given. F/u with Industrial Con[employer]or Belt Repairer as per schedule. Cont f/u with Psych at [facility] as per schedule. HM: Flu - Pt declined. Tdap, Gardasil - At pharmacy/HD. F/u in 2-3 months. Annual labs in 09/02. [email or web address] Not available 09/04/2023 12:18:45 04/19/2025 04/19/2025 Educated pt about alarming symptoms to monitor at home. Not available 04/19/2025 11:29:33 Plan of Treatment Reminders Order Date Submit Date Provider Last Modified By Organization Details Last Modified Time Details Appointments Sick/Acut e 2024 04:15P M Rubén Payan MD Not available Not available Not available Lab vitamin D, 25-hydrox y, total, serum [address] (Lab), [address] [place], [address], 09/05/2023 08:59:17 HbA1c (hemoglob in A1c), blood [address] (Lab), [address] [place], [address], 09/05/2023 08:59:17 CMP, serum or plasma 2022 023 [facility] (Lab), [address] [place], [address], 08/13/2023 14:23:46 CBC w/ auto diff 2022 023 [facility] (Lab), [address] [place], [address], 08/13/2023 13:20:52 lipid panel, blood [address] (Lab), [address] [place], [address], 09/05/2023 08:59:17 TSH, serum, reflex free T4 [address] (Lab), [address] [place], [address], 09/05/2023 08:59:17 urinalysi s complete, reflex culture [address] (Lab), [address] [place], [address], 09/05/2023 08:59:17 Referral cardiolog ist referral - Please call patient to schedule an appointme nt. Thank you. 2024 025 [facility], [address], [address], [place], [address], 04/22/2025 13:01:02 health promotion coordinator referral 2022 023 [email or web address] u Care Physician Referral Management, [address] [facility] [address], [place], [address], 08/20/2023 08:01:09 Procedures None recorded. Surgeries None recorded. Imaging XR, chest, 2 view 2022 023 [id number] Not available 08/28/2023 09:27:29 Medication Orders ondansetr on HCl 4 mg tablet 2024 025 [email or web address] [facility], [address] [place], [place], [id number], 04/19/2025 11:29:09 famotidin e 20 mg tablet 2024 025 [id number], [address] [place] [address], [id number], 04/19/2025 11:23:26 buspirone 10 mg tablet 2022 023 [email or web address] [facility] #53765, [address] [place] [address], [id number], 04/19/2025 11:21:42 bupropion HCl SR 150 mg tablet,12 hr sustained -release [address] [facility]03062, [address] [place] [address], [id number], 04/19/2025 11:21:39 buspirone 10 mg tablet 2022 023 [email or web address] [facility] #66694, [address] [place] [address], [id number], 04/19/2025 11:21:42 bupropion HCl SR 150 mg tablet,12 hr sustained -release 2022 023 [email or web address] [facility] #72964, [address] [place] [address], [id number], 04/19/2025 11:21:39 Patient TargetsNo targets recorded. Patient Instructions Encounter Date Encounter Id Patient Instructions Last Modified By Organization Details Last Modified Time 07/23/2023 [id number] irritable bowel syndrome: care instructions [email or web address] Not available 07/23/2023 17:02:07 Reason for Referral Industrial Con[employer]or Belt Repairer Referral for Aller gy to food Referring Physician: [facility], Encounter Date: 08/13/2023 Library Clerk Referral for At ypical chest pain Chronic intermittent chest pain for last 2-3 yrs Please call patient to schedule an appointment. Thank you. Referring Physician: [facility], Encounter Date: 04/19/2025 Results Created Date Observation Date Name Description Value Unit Range Abnormal Flag Note LastModifiedBy Organization Detail LastModifiedTime 08/13/2008/13/2023 CBC/C OMPLE TE BLD COUNT W/DIF F white blood cells 6.9 x10'3 /uL 4.2-10 .8 Not Available [facility] (Lab) [address] [place], [address], 08/13/2023 13:20:52 08/13/2008/13/2023 CBC/C OMPLE TE BLD COUNT W/DIF F red blood cells 5.23 x10'6 /uL 4.10-5 .80 Not Available [facility] (Lab) [address] [place], [address], 08/13/2023 13:20:52 08/13/2008/13/2023 CBC/C OMPLE TE BLD COUNT W/DIF F hemoglobin 16.8 g/dL 13.2-1 7.0 Not Available [facility] (Lab) [address] [place], [address], 08/13/2023 13:20:52 08/13/2008/13/2023 CBC/C OMPLE TE BLD COUNT W/DIF F hematocrit 48.8 % 39.3-5 0.0 Not Available [facility] (Lab) [address] [place], [address], 08/13/2023 13:20:52 08/13/2008/13/2023 CBC/C OMPLE TE BLD COUNT W/DIF F mean red cell volume 93.3 fL 80.0-9 7.0 Not Available [facility] (Lab) [address] [place], [address], 08/13/2023 13:20:52 08/13/20 23 08/13/2023 CBC/C OMPLE TE BLD COUNT W/DIF F mean red cell hemoglobin 32.1 pg 27.0-3 3.0 Not Available [facility] (Lab) [address] [place], [address], 08/13/2023 13:20:52 08/13/2008/13/2023 CBC/C OMPLE TE BLD COUNT W/DIF F mean RBC HGB concentratio n 34.4 g/dL 31.0-3 6.0 Not Available [facility] (Lab) [address] [facility], [place], [address], 08/13/2023 13:20:52 08/13/2008/13/2023 CBC/C OMPLE TE BLD COUNT W/DIF F red cell distribution width 11.2 % 11.8-1 5.5 low Not Available [facility] (Lab) [address] [place], [address], 08/13/2023 13:20:52 08/13/2008/13/2023 CBC/C OMPLE TE BLD COUNT W/DIF F platelets 335 x10'3 /uL 150-40 0 Not Available [facility] (Lab) [address] [place], [address], 08/13/2023 13:20:52 08/13/20 23 08/13/2023 CBC/C OMPLE TE BLD COUNT W/DIF F mean platelet volume 9.3 fL 9.0-12 .4 Not Available [facility] (Lab) [address] [place], [address], 08/13/2023 13:20:52 08/13/2008/13/2023 CBC/C OMPLE TE BLD COUNT W/DIF F neutrophils 49.1 % 39.0-7 2.0 Not Available [facility] (Lab) [address] [place], [address], 08/13/2023 13:20:52 08/13/20 23 08/13/2023 CBC/C OMPLE TE BLD COUNT W/DIF F lymphocytes 31.5 % 16.0-4 7.0 Not Available [facility] (Lab) [address] [place], [address], 08/13/2023 13:20:52 08/13/2008/13/2023 CBC/C OMPLE TE BLD COUNT W/DIF F monocytes 13.0 % 5.0-12 .0 high Not Available [facility] (Lab) [address] [place], [address], 08/13/2023 13:20:52 08/13/2008/13/2023 CBC/C OMPLE TE BLD COUNT W/DIF F eosinophils 4.8 % 1.0-7. 0 Not Available [facility] (Lab) [address] [place], [address], 08/13/2023 13:20:52 08/13/2008/13/2023 CBC/C OMPLE TE BLD COUNT W/DIF F basophils 1.3 % 0.0-2. 0 Not Available [facility] (Lab) [address] [place], [address], 08/13/2023 13:20:52 08/13/2008/13/2023 CBC/C OMPLE TE BLD COUNT W/DIF F immature granulocytes 0.3 % 0.00-0 .50 Not Available [facility] (Lab) [address] [place], [address], 08/13/2023 13:20:52 08/13/2008/13/2023 CBC/C OMPLE TE BLD COUNT W/DIF F neutrophils, absolute count 3.37 x10'3 /uL 1.5-8. 0 Not Available [facility] (Lab) [address] [place], [address], 08/13/2023 13:20:52 08/13/2008/13/2023 CBC/C OMPLE TE BLD COUNT W/DIF F lymphocytes, absolute count 2.16 x10'3 /uL 1.07-3 .43 Not Available [facility] (Lab) [address] [place], [address], 08/13/2023 13:20:52 08/13/20 23 08/13/2023 CBC/C OMPLE TE BLD COUNT W/DIF F monocytes, absolute count 0.89 x10'3 /uL 0.29-0 .99 Not Available [facility] (Lab) [address] [place], [address], 08/13/2023 13:20:52 08/13/2008/13/2023 CBC/C OMPLE TE BLD COUNT W/DIF F eosinophils, absolute count 0.33 x10'3 /uL 0.02-0 .53 Not Available [facility] (Lab) [address] [place], [address], 08/13/2023 13:20:52 08/13/20 23 08/13/2023 CBC/C OMPLE TE BLD COUNT W/DIF F basophils, absolute count 0.09 x10'3 /uL 0.01-0 .08 high Not Available [facility] (Lab) [address] [place], [address], 08/13/2023 13:20:52 08/13/2008/13/2023 CBC/C OMPLE TE BLD COUNT W/DIF F immature granulocytes ,absolute 0.02 x10'3 /uL 0.00-0 .05 Not Available [facility] (Lab) [address] [place], [address], 08/13/2023 13:20:52 08/13/2008/13/2023 CBC/C OMPLE TE BLD COUNT W/DIF F nucleated red blood cells 0.0 % -0 Not Available [facility] (Lab) [address] [place], [address], 08/13/2023 13:20:52 08/13/2008/13/2023 CBC/C OMPLE TE BLD COUNT W/DIF F NRBC# 0.00 x10'3 /uL Not Available [facility] (Lab) [address] [place], [address], 08/13/2023 13:20:52 08/13/2008/13/2023 LIPID PANEL cholesterol 181 mg/dL 140-19 9 NIH FABIAN NSUS RECOM MENDA TION FOR SARAHI STERO L: ADULT CHILD LOW RISK: <200 <170 BORDE RLINE : <200- 239 ----- HIGH RISK: >240 >200 Not Available [facility] (Lab) [address] [place], [address], 08/13/2023 14:23:40 08/13/2008/13/2023 LIPID PANEL triglyceride s 88 mg/dL 0-150 NIH FABIAN NSUS REPOR T RECOM MENDA TION FOR TRIGL YCERI MARY ANNE: ADULT CHILD LOW RISK: <150 ----- BODER LINE: 150-1 99 ----- HIGH RISK: >200 ----- Not Available [facility] (Lab) [address] [place], [address], 08/13/2023 14:23:40 08/13/2008/13/2023 LIPID PANEL HDL cholesterol 45 mg/dL 40- Not Available [facility] (Lab) [address] [place], [address], 08/13/2023 14:23:40 08/13/2008/13/2023 LIPID PANEL LDL cholesterol, calculated 118 mg/dL 0-130 NIH FABIAN NSUS REPOR T RECOM MENDA TIONS FOR LDL: ADULT CHILD LOW RISK <130 <110 (OPTI MAL LDL) <100 ----- BORDE RLINE : 130-1 59 ----- HIGH RISK: >160 >130 A TRIGL YCERI DE RESUL T >400 INVAL IDATE S THE CALCU LATIO N FOR LDL FRACT IONAT ION - THE LDL RESUL T WILL NOT BE REPOR HOME. Not Available [facility] (Lab) [address] [place], [address], 08/13/2023 14:23:40 08/13/2008/13/2023 COMPR EHENS MIAH METAB OLIC PANEL sodium 141 mmol/ L 137-14 5 Not Available [facility] (Lab) [address] [place], [address], 08/13/2023 14:23:45 08/13/2008/13/2023 COMPR EHENS MIAH METAB OLIC PANEL potassium 4.4 mmol/ L 3.5-5. 1 Not Available [facility] (Lab) [address] [place], [address], 08/13/2023 14:23:45 08/13/2008/13/2023 COMPR EHENS MIAH METAB OLIC PANEL chloride 105 mmol/ L 98-107 Not Available [facility] (Lab) [address] [place], [address], 08/13/2023 14:23:45 08/13/2008/13/2023 COMPR EHENS MIAH METAB OLIC PANEL carbon dioxide 27 mmol/ L 22-30 Not Available [facility] (Lab) [address] [place], [address], 08/13/2023 14:23:45 08/13/2008/13/2023 COMPR EHENS MIAH METAB OLIC PANEL anion gap 13.4 mmol/ L 14-22 low Not Available [facility] (Lab) [address] [place], [address], 08/13/2023 14:23:45 08/13/2008/13/2023 COMPR EHENS MIAH METAB OLIC PANEL glucose 90 mg/dL 70-99 Not Available [facility] (Lab) [address] [place], [address], 08/13/2023 14:23:45 08/13/20 23 08/13/2023 COMPR EHENS MIAH METAB OLIC PANEL BUN 17 mg/dL 8-19 Not Available [facility] (Lab) [address] [place], [address], 08/13/2023 14:23:45 08/13/20 23 08/13/2023 COMPR EHENS MIAH METAB OLIC PANEL creatinine 0.82 mg/dL 0.66-1 .25 Not Available [facility] (Lab) [address] [facility] [address], [place], [address], 08/13/2023 14:23:45 08/13/2008/13/2023 COMPR EHENS MIAH METAB OLIC PANEL GFR >60 Refer ence Range : [place] ge GFR Healt hy Adult : >60 mL/mi n/1.7 3 m2 Chron ic Kidne y Disea se: 15-60 mL/mi n/1.7 3 m2 Kidne y Failu re: <15/m L/min /1.73 m2 www.n iddk. nih.g ov The MDRD study equat ion has not been valid ated in child zachary <18 years of age; pregn ant women ; the elder ly >85 years of age; or in some racia l or ethni c subgr oups, such as nc nics. Outsi de the valid ated tracy eters , estim ated GFR is less accur ate, requi ring clini alexa judgm ent on a case- by-ca se basis . Clini alexa inter preta tion for other races and ages must be made by the clini bryce. The MDRD study equat ion has not been valid ated for the evalu ation of serum creat inine relat ed to nutri deysi l statu s or medic ation usage . For perso ns <18 years of age, a pedia tric GFR calcu lator is avail able on the F websi te: https ://rafia w.kalyan lam.o rg/pr ofess ional s/kdo qi/gf r_cal culat or Not Available [facility] (Lab) [address] [place], [address], 08/13/2023 14:23:45 08/13/2008/13/2023 COMPR EHENS MIAH METAB OLIC PANEL alkaline phosphatase 73 U/L 38-126 Not Available [facility] (Lab) [address] [place], [address], 08/13/2023 14:23:45 08/13/2008/13/2023 COMPR EHENS MIAH METAB OLIC PANEL alanine aminotransfe rase 25 U/L 0-50 Not Available [facility] (Lab) [address] [place], [address], 08/13/2023 14:23:45 08/13/2008/13/2023 COMPR EHENS MIAH METAB OLIC PANEL aspartate aminotransfe rase 29 U/L 15-46 Not Available [facility] (Lab) [address] [place], [address], 08/13/2023 14:23:45 08/13/2008/13/2023 COMPR EHENS MIAH METAB OLIC PANEL bilirubin, total 0.80 mg/dL 0.20-1 .30 Not Available [facility] (Lab) [address] [place], [address], 08/13/2023 14:23:45 08/13/2008/13/2023 COMPR EHENS MIAH METAB OLIC PANEL calcium 10.1 mg/dL 8.4-10 .2 Not Available [facility] (Lab) [address] [place], [address], 08/13/2023 14:23:45 08/13/2008/13/2023 COMPR EHENS MIAH METAB OLIC PANEL total protein 7.6 g/dL 6.3-8. 2 Not Available [facility] (Lab) [address] [place], [address], 08/13/2023 14:23:45 08/13/2008/13/2023 COMPR EHENS MIAH METAB OLIC PANEL albumin 4.8 g/dL 3.4-5. 0 Not Available [facility] (Lab) [address] [place], [address], 08/13/2023 14:23:45 08/13/2008/13/2023 COMPR EHENS MIAH METAB OLIC PANEL globulin 2.8 g/dL 2.6-4. 2 Not Available [facility] (Lab) [address] [place], [address], 08/13/2023 14:23:45 08/13/2008/13/2023 COMPR EHENS MIAH METAB OLIC PANEL A/G ratio 1.7 ratio 1.0-2. 0 Not Available [facility] (Lab) [address] [place], [address], 08/13/2023 14:23:45 08/13/2008/13/2023 VITAM IN D 25-HY DROXY [id number] 47.1 NG/mL 30-100 Vitam in D Statu s: Defic ient: <20 ng/mL Insuf ficie nt: 20-29 ng/mL Suffi cient : 30-10 0 ng/mL Not Available [facility] (Lab) [address] [place], [address], 08/13/2023 14:41:44 08/13/2008/13/2023 TSH W/REF SIDNEY FT4 TSH with reflex free T4 0.719 uIU/m L 0.465- 4.680 Not Available [facility] (Lab) [address] [place], [address], 08/13/2023 14:59:41 08/13/2008/13/2023 HEMOG LOBIN A1C HA1C 5.0 % 4.0-6. 0 Diabe michael Scree nani Crite mayco: <5.7% Consi stent with absen ce of diabe michael 5.7-6 .4% Consi stent with incre ased risk for diabe michael (pred iabet es) >OR=6 .5% Consi stent with diabe michael REFER ENCE: Diabe michael Care 2016, 39(Johnson ppl.1 ):s13 -s22 Not Available [facility] ([facility]) [address] [facility], [address], [place], [address], 08/13/2023 20:31:58 Result Notes None recorded. Problems Name Problem SNOMED Code Status Onset Date Resolution Date Notes Provider Name and Address Organization Details Recorded Time Attention deficit hyperactivity disorder, predominantly inattentive type 90315680 Active 2022 Rubén Payan MD [address], [address], [place], [address], [employer] 3 16:45:55 Anxiety disorder 971534439 Active 2022 Rubén Payan MD [address], [address], [place], [address], [employer] 3 16:46:00 Irritable bowel syndrome 76959652 Active 2022 Rubén Payan MD [address], [address], [place], [address], [employer] 5 11:15:43 Smoker 45202968 Active 2022 Rubén Payan MD [address], [address], [place], [address], [employer] 3 16:47:21 Allergy to food 142255167 Active 2022 Rubén Payan MD [address], [address], [place], [address], [employer] 3 09:31:09 Muscle tension pain 821434234 Active 2024 Rubén Payan MD [address], [address], [address], [facility] 5 11:16:25 Gastroesophage al reflux disease without esophagitis 968845441 Active 2024 Rubén Payan MD [address], [address], [place], [address], [facility] [employer] [facility] [employer] 5 11:16:47 Atypical chest pain 829598170 Active 2024 Rubén Payan MD [address], [address], [place], [address], [employer] [facility] 5 11:18:25 Nausea 610435420 Active 2024 Rubén Payan MD [address], [address], [place], [address], [employer] [facility] 5 11:22:00 Family history of stroke 214159548 Active 2024 Rubén Payan MD [address], [address] [address], [place], [address], [employer] [facility] 5 11:28:17 Problem Notes None recorded. Procedures Surgical History Date Name Laterality Status Provider Name and Address Organization Details Recorded Time 3 Smoking Cessation completed Rubén Payan MD [address], [address] [address], [place], [address], [employer] [facility] 07/23/2023 16:50:32 Imaging Results None recorded. Procedure Notes None recorded. Medical Equipment None Reported. Allergies No known drug allergies Medications Name Sig Start Date Stop Date Status Note LastModified by Organization Details LastModified Time bupropion HCl SR 150 mg tablet,12 hr sustained-r elease TAKE 1 TABLET BY MOUTH TWICE DAILY DIRECTED 04/19 completed Not Available Not Available Not Available ondansetron HCl 4 mg tablet TAKE 1 TABLET BY MOUTH EVERY DAY FOR 20 DAYS NEEDED active Not Available Not Available No t Available famotidine 20 mg tablet TAKE 1 TABLET BY MOUTH TWICE DAILY DIRECTED active Not Available Not Available No t Available buspirone 10 mg tablet TAKE 1 TABLET BY MOUTH EVERY 12 HOURS NEEDED 04/19 completed Not Available Not Available Not Available methylpredn isolone 4 mg tablets in a dose pack TAKE DIRECTED 07/23 completed Not Available Not Available Not Available PreviDent 5000 Plus 1.1 % cream BRUSH TWICE DAILY 07/23 completed Not Available Not Available Not Available ondansetron 4 mg disintegrat ing tablet DISSOLVE 1 TABLET ON THE TONGUE EVERY 8 HOURS NEEDED FOR NAUSEA OR VOMITING 07/23 completed Not Available Not Available Not Available Vitals Date Recorded Body height Body mass index (BMI) Body weight Body temperature Oxygen saturation Oxygen saturation in Arterial blood by Pulse oximetry Heart rate Systolic And Diastolic Provider Name and Address Organization Details Last Updated DateTime 5 180.34 cm 19.4 kg/m2 89609.3 9 g 98.1 [degF] 99 % 99 % 62 /min 112/70 mm[Hg] Pratima Persaud RN [facility] 5 11:11:57 Date Recorded Body weight Body temperature Heart rate Respiratory rate Oxygen saturation Oxygen saturation in Arterial blood by Pulse oximetry Systolic And Diastolic Provider Name and Address Organization Details Last Updated DateTime 3 47831.6 9 g 97.1 [degF] 79 /min 16 /min 99 % 99 % 126/60 mm[Hg] [facility] 3 16:42:15 Date Recorded Body height Body mass index (BMI) Body weight Body temperature Heart rate Respiratory rate Oxygen saturation Oxygen saturation in Arterial blood by Pulse oximetry Systolic And Diastolic Provider Name and Address Organization Details Last Updated DateTime 3 175.26 cm 20 kg/m2 62499.6 7 g 98.1 [degF] 70 /min 16 /min 98 % 98 % 108/60 mm[Hg] [facility] 3 09:26:06 Date Recorded Body height Body mass index (BMI) Body weight Body temperature Heart rate Respiratory rate Oxygen saturation Oxygen saturation in Arterial blood by Pulse oximetry Systolic And Diastolic Provider Name and Address Organization Details Last Updated DateTime 3 175.26 cm 19.5 kg/m2 87660.5 4 g 98 [degF] 90 /min 16 /min 99 % 99 % 110/66 mm[Hg] [facility] 12:12:28 Social History Question Answer Notes LastModified by Organizat ion Details LastModified Time Tobacco Smoking Status Current Every Day Smoker Rubén Payan MD [address], [address] [address], [place], [address], [place] [facility] [employer] 07/23/2023 16:58:39 Do You Have An Advance Directive? No Information not available 07/23/2023 Is Blood Transfusion Acceptable In An Emergency? No Information not available 07/23/2023 What Is Your Code Status? Full Code Information not available 07/23/2023 In The 14 Days Before Symptom Onset, Have You Had Close Contact With A Laboratory-confi rmed COVID-19 While That Case Was Ill? No Information not available 07/23/2023 In The 14 Days Before Symptom Onset, Have You Had Close Contact With A Person Who Is Under Investigation For COVID-19 While That Person Was Ill? No Information not available 07/23/2023 What Type Of Diet Are You Following? REGULAR Information not available 07/23/2023 What Is The Highest Grade Or Level Of School You Have Completed Or The Highest Degree You Have Received? [id number] Information not available 07/23/2023 Have There Been Any Changes To Your Family Or Social Situation? Yes Information not available 07/23/2023 What Is The Fluoride Status Of Your Home? Unknown Information not available 07/23/2023 Are There Any Guns Present In Your Home? Yes Information not available 07/23/2023 Do You Use Insect Repellent Routinely? No Information not available 07/23/2023 Where Do You Live? SingleLevelHouse Information not available 07/23/2023 Do You Have A Medical Power Of Edge Setter? Yes Information not available 07/23/2023 What Is Your Relationship Status? Information not available 07/23/2023 Do You Use Your Seat Belt Or Car Seat Routinely? Yes Information not available 07/23/2023 Are You Sexually Active? Yes Information not available 07/23/2023 Do You Have Smoke And Carbon Monoxide Detectors In Your Home? Yes Information not available 07/23/2023 Are You Passively Exposed To Smoke? Yes Information not available 07/23/2023 Are There Any Smokers In Your House? Yes Information not available 07/23/2023 Do You Participate In Social Media? Yes Information not available 07/23/2023 Do You Use Sunscreen Routinely? Yes Information not available 07/23/2023 Have You Recently Traveled Abroad? No Information not available 07/23/2023 Sex: Male Functional Status None recorded. Mental Status Question Answer Note LastModified by Organization D etails LastModified Time Do you feel stressed (tense, restless, nervous, or anxious, or unable to sleep at night)? [id number] Information not available 07/23/2023 Family History Relationship Description Onset Age of this Age Resolved Age Notes LastModified by Organization Details LastModified Time Father No current problems or disability Not available 07/23 16:38:06 Mother No current problems or disability Not available 07/23 16:38:06 Medical History Condition Response BLINDNESS N RHEUMATIC FEVER N KIDNEY STONES N BLADDER PROBLEMS N MRSA N OTHER # 1 N POLIO N LUNG DISEASE/DISORDER N HISTORY OF DRUG ABUSE N COPD N RADIATION / CHEMOTHERAPY N Other # 2 N BLOOD DISEASES N SURGERY N EAR OR HEARING PROBLEMS N MUMPS N SHINGLES N FEMALE PROBLEMS / INFECTIONS N DEPRESSION (INCLUDING POST ) N BOWEL PROBLEMS N FAILED BACK SYNDROME N STROKE/TIA N THYROID DISEASE N ULCERS N BENIGN PROSTATIC HYPERPLASIA N MEASLES N CERVICALGIA N HYPOTENSION N TB SKIN TEST N MYOCARDIAL INFARCTION N OBESITY N PARAPELGIA N GERD/NAUSEA N ANEURYSM N URINARY/BLADDER/KIDNEY PROBLEMS N CORONARY ARTERY DISEASE (CAD) N Do you have Advance directive? N MENIERE'S DISEASE N ADDICTION CONCERNS N ENDOMETRIOSIS N USE OF BLOOD THINNERS N SKIN PROBLEMS N EMPHYSEMA N GASTROINTESTINAL DISORDER N PERIPHERAL ARTERY DISEASE N MUSCLE,JOINT OR BONE PROBLEMS N GASTROINTESTINAL BLEEDING N BLOOD CLOTS N ASTHMA N CATARACTS N Abdominal Pain N ERECTILE DYSFUNCTION N ARTERIAL INSUFFICIENCY N GI PROBLEMS N CHF N Low Testosterone N NEUROPATHY N INFERTILITY N AIDS/HIV N FRACTURES N CHEMOTHERAPY / RADIATION N VISION/EYE PROBLEMS N LIVER DISEASE N HYPERTENSION N TOURETTE'S N ANXIETY DISORDER N BLOOD TRANSFUSION N ANEMIA/BLOOD DISORDER N CHRONIC EAR INFECTIONS N BRONCHITIS N TUBERCULOSIS N GLAUCOMA N FOOT PROBLEM N DIVERTICULITIS N SLEEP APNEA N CHICKENPOX N ALLERGIES/HAYFEVER N BACK INJECTIONS N INFECTIOUS DISEASE N PROSTATE N HEART ARRHYTHMIA N ESRD N INSOMNIA N HIGH CHOLESTEROL / HYPERLIPIDEMIA N EYE PROBLEMS N HYPERTHYROIDISM N PVD N EATING DISORDER N EDEMA N CHRONIC PAIN SYNDROME N CAROTID BLOCKAGE N CONSTIPATION N BACK / NECK PROBLEMS N HAVE YOU BEEN HOSPITALIZED OR SEEN IN [facility] IN THE PAST YEAR ? N ATHEROSCLEROSIS N BREAST PROBLEMS N DIALYSIS N POLYCYSTIC OVARIES N ECZEMA N FIBROMYALGIA N OSTEOPOROSIS N ARTHRITIS N NO SIGNIFICANT PAST MEDICAL HISTORY N APPENDICITIS N DIABETES, TYPE N BAD TEETH N VON WILLIBRAND'S DISEASE N HEARTBURN / REFLUX N ADD/ADHD N AUTISM SPECTRUM DISORDER (ASD) N POST LAMINECTOMY SYNDROME N HEPATITIS / LIVER DISEASE N PULMONARY DISEASE N GOUT N SLEEP DISORDER N ALZHEIMER'S DISEASE N PAIN N DEMENTIA N HERPES N SEIZURES/EPILEPSY N HEADACHES/MIGRAINES N VASCULAR DISEASE N PACEMAKER N DIZZINESS N KIDNEY DISEASE N HEART DISEASE/HEART PROBLEMS N SCARLET FEVER N MULTIPLE SCLEROSIS N MENTAL DISORDER/ILLNESS N DEVELOPMENTAL OR BEHAVIORAL DISORDERS N NEUROPSYCHOLOGICAL N CANCER: SPECIFY N CARDIAC ARRHYTHMIA N PNEUMONIA N ATRIAL FIBRILLATION N Gall Stones N PULMONARY EMBOLISM N AUTOIMMUNE DISEASE N Past Encounters Encounter ID Performer Location Encounter Start Date Encounter Closed Date Diagnosis/Indication Diagnosis SNOMED-CT Code Diagnosis ICD10 Code Diagnosis Note [id number] Rubén Payan MD [address] [address] 07/23/2023 16:13:34 07/23/2023 17:01:08 Attention deficit hyperactivity disorder, predominantly inattentive type 03608150 F90.0 Anxiety disorder 06 F41.9 Irritable bowel syndrome 22282478 K58.9 Smoker 16282617 F17.850 [id number] Rubén Payan MD [address] [address] 08/13/2023 09:17:41 08/13/2023 09:56:20 Adult health examination 901142269 Z00.00 Smoker 65804103 F17.200 Screening for disorder 269417719 Z13.9 Diabetes m ellitus screening 741849552 Z13.1 Allergy to food 12540094 1 T78.1XXA Anxiety disorder 0000060 06 F41.9 [id number] Rubén Payan MD [facility] [address] [place] [address] 1 09/04/2023 12:04:38 09/04/2023 12:23:00 Smoker 89386276 F17.200 Allergy to food 01650768 1 T78.1XXA Anxiety disorder 6931976 06 F41.9 Attention deficit hyperactivity disorder, predominantly inattentive type 83767847 F90.0 [id number] Rubén Payan MD [facility] [address] [place] [address] 04/19/2025 10:59:00 04/19/2025 11:25:03 Irritable bowel syndrome 63501945 K58.9 Muscle tension pain 2790 84641 M79.10 Gastroesop hageal reflux disease without esophagitis 397250230 K21.9 Atypical chest pain 1025 30530 R07.89 Family his tory of stroke 728802437 Z82.3 Nausea 525500939 R11.0 Seen in department 18151 1009 Z76.89 Health Concerns Section Related Observation LastModified by Organization Detai ls LastModified Time None Recorded Concern Status LastModified by Organization Details LastModified Time None Recorded Advance Directives Directive N: Payers Insurance Date Sequence Insurance Name Policy Number Policy Vee Covered Member ID Vee Member ID Guarantor Name 04/29/2025 1 [facility] ON OR AFTER 05/10/21 (MEDICAID REPLACEMENT - HMO) Freddie Zepeda [id number] Freddie Zepeda 07/21/2024 1 [facility] ON OR AFTER 11/10/2020 - DUAL ELIGIBLE (MEDICARE REPLACEMENT/AD VANTAGE - HMO) Freddie Garvin [id number] Freddie Zepeda Notes Date Note Type Note Provider Name and Address Organization Details Recorded Time 07/23/2023 text/html New pt visit:33 yo M is here to establish his care. Pt was seeing PCP at [place] in the past.Doing overall well. Needs refill on his meds. Pt has ADHD and anxiety and he is seeing Psych at [facility] for this. But he doesn't want to drive there every couple months for med refills. Denies any mood swings/SI/HI. No other concern.PMH, FH and SH reviewed. Rubén Payan MD [address], [place], [address], [facility] [employer] [facility] [employer] 07/23/2023 17:02:19 08/13/2023 text/html Pt is here for h is annual exam. Doing overall well. Needs refill on his meds. Pt has ADHD and anxiety and he is seeing Psych at [facility] for this. But he doesn't want to drive there every couple months for med refills. Denies any mood swings/SI/HI. Pt says he is not able to tolerate certain foods and wants to see an affirmative action specialist for it.[facility], and SH reviewed. Rubén Payan MD [address], [place], [address], [facility] [employer] [facility] [employer] 08/13/2023 09:41:34 09/04/2023 text/html Pt is here for f /u on his annual labs. Doing overall well. Denies any problem with meds. Denies any new concern. Pt has not gone for cxr yet. Pt has ADHD and anxiety and he is seeing Psych at [facility] for this. But he doesn't want to drive there every couple months for med refills. Denies any mood swings/SI/HI. Pt says he is not able to tolerate certain foods and wants to see an affirmative action specialist for it. Rubén Payan MD [address], [place], [address], [facility] [employer] [facility] [employer] 09/04/2023 12:56:04 04/19/2025 text/html ACV: C/o central chest and epigastric area pain for last 4-5 days, it has been happening for last several years. Pt wants to see a wire insulator for it. Denies any symptoms in the office. Pt says he gets this every few days. Pt has seen GI couple yrs ago for his chronic abdominal pain and he was told by them that he has IBS. Pt is not on any med by them. Pt doesn't want to f/u with them either. Pt does lot of exercise and running regularly. Pt was seen at for this last week and had EKG and it was good as per pt. Last visit in 09/01. Rubén Payan MD [address] [facility], [facility] [address], [place], [address], [facility] [employer] 04/19/2025 11:31:12
[2025-05-28 16:13] VITALS: BP 114/55; PULSE 72; RESP 18; TEMP 36.6; O2SAT 99
--- NOTE | 2025-05-28 16:17 | ED_ITS ---
HPI - Abdominal Pain General Chief Complaint: Chest Pain Stated Complaint: stomach and chest pain Time Seen by Provider: 05/28/25 16:20 Source: patient Mode of arrival: ambulatory Limitations: no limitations History of Present Illness HPI narrative: Freddie is a 35-year-old male patient presenting to the clinic today with complaints of chronic epigastric abdominal pain. States he been having flares for a couple years however this morning his flare got worse and he called into work. Complaints of nausea this morning no vomiting. Had a lot of epigastric abdominal pain/burning-rated the pain at that time and 8 at 10 but states it is now down to a 2/10. He has been taking Pepcid and Zofran and does not feels though the Pepcid is helping his symptoms. Denies any blood in his stool. Denies any hematemesis Last bowel movement was today and normal for the patient. Has seen GI specialist in the past without any diagnosis or positive results. He does smoke marijuana. He states he probably smoke was above average amount of marijuana however he feels worse when he is not smoking it. Related Data Home Medications ?Medication ?Instructions ?Recorded ?Confirmed ?Last Taken ?Type famotidine 20 mg tablet mg 05/28/25 Unknown History Allergies Allergy/AdvReac Type Severity Reaction Status Date / Time No Known Allergies Allergy Verified 05/28/25 16:15 [facility] Past Medical History Medical History Substance abuse IV heroin and synthetic marijuana GERD (gastroesophageal reflux disease) Anxiety Social History Social History Smoking status: Light tobacco smoker Alcohol intake: never Gender identity (if verbalized by the patient): Male Comments At the time of my signature, I reviewed and agree with the nursing past medical, surgical, social, and family history. There is no relevant family history pertinent to the patient complaint. Course Course Emergency Course: Portions of this record may have been created with voice recognition software. Level of Care: Express Care Visit Vital Signs Vital signs: Vital Signs Temperature 36.6 C 05/28/25 16:13 Pulse Rate 72 05/28/25 16:13 Respiratory Rate 18 05/28/25 16:13 Blood Pressure 114/55 L 05/28/25 16:13 Pulse Oximetry 99 05/28/25 16:13 Oxygen Delivery Room Air 05/28/25 16:13 Temperature 36.6 C 05/28/25 16:13 Pulse Rate 72 05/28/25 16:13 Respiratory Rate 18 05/28/25 16:13 Blood Pressure 114/55 L 05/28/25 16:13 Pulse Oximetry 99 05/28/25 16:13 Oxygen Delivery Room Air 05/28/25 16:13 Vital signs reviewed MDM - Abdominal Pain MDM Narrative Medical decision making narrative: At the time of visit patient is resting comfortably on the exam table. Patient appears to be nontoxic. Patient is having epigastric abdominal pain with burning in the epigastric area and in the chest. Denies any shortness of breath. No fevers, chills, body aches. No recent weight loss. No hematemesis or hematochezia. Last bowel movement was today and normal. He does smoke marijuana regularly-stating use above average amount. Denies any chest pain on inspiration. Vital signs are stable. No dizziness, weakness, or lethargy. History of anxiety and substance abuse-THC and heroin. EKG ordered. Offered Maalox and viscous lidocaine cocktail and patient declined-states his pains 2 out of 10. Called off work today and requesting work note. EKG: EKG shows sinus rhythm with incomplete right bundle-branch block. No ST elevation, depression, or T-wave inversion noted. Heart rate is 71 beats per minute. Comparison EKG shows no acute changes Plan: I suspect patient has chronic epigastric abdominal pain. Will send in prescription for Protonix, Zofran, and Carafate. Recommend GI [id number] given. Supportive measures were discussed with the patient and they voiced understanding discharge instructions and agrees to treatment plan. Return precautions reviewed Differential Diagnosis Differential diagnosis: Likely abdominal pain, acute appendicitis, constipation, diverticulitis, gastroenteritis, pancreatitis, small bowel obstruction and other (GERD, hiatal hernia, PUD, pleurisy, costochondritis, atypical chest pain, STEMI, non STEMI) ECG Data EKG #1: Attestation: I personally reviewed and interpreted this ECG as follows: ECG completion date: 05/28/25 ECG completion time: 16:11 Prior ECG tracings: available for review Interpretation: EKG shows sinus rhythm with incomplete right bundle-branch block. No ST elevation, depression, or T-wave inversion noted. Heart rate is 71 beats per minute. VA interval is 152 milliseconds, QRS duration 101 milliseconds, QT-QTC is 355-377 milliseconds, P-R-T axis is 26 90 81. No changes on comparison EKG Discharge Plan Discharge Clinical Impression: Epigastric abdominal pain Patient Disposition: Home Condition: Stable Instructions: Antibiotic Form, Diet for Stomach Ulcers and Gastritis (ED), GERD (Gastroesophageal Reflux Disease) (ED), Abdominal Pain (ED) Additional Instructions: EKG is reassuring in the clinic today. Take medications as prescribed-Protonix, Carafate, and Zofran Increase fluids and stay well hydrated Avoid eating spicy or fatty foods, chocolate, or drinking caffeine. Avoid foods that cause you to feel bloated. Stop smoking Lose weight/exercise Stay upright for at least 30 minutes after eating. May use tums for immediate relief Follow up with your PCP in 3-5 days if symptoms persist. Follow-up with Dr. Llamas-GI specialist-call office on Friday to schedule appointment Patient Language: Dutch Prescriptions: New pantoprazole [Protonix] 40 mg tablet,delayed release (DR/EC) 40 mg PO HS 28 Days Qty: 28 0RF sucralfate [Carafate] 1 gram tablet 1 g PO ACHS 30 Days Qty: 120 0RF ondansetron 8 mg tablet,disintegrating 8 mg PO Q8H 3 Days Qty: 10 0RF No Action ondansetron 4 mg tablet,disintegrating 4 mg PO TID PRN (Reason: nausea and vomiting) Qty: 15 0RF famotidine 20 mg tablet Follow-up/Referrals: Schuyler,MD Rubén [Primary Care Provider] - Cipriano Ashley MD [Physician] - 2 Days (Chronic epigastric abdominal pain) Stand Alone Forms: Work/School Release IP Time of Disposition: 16:30 Quality NIHSS Nursing Documentation ED NIHSS nursing documentation: reviewed/agree
--- NOTE | 2025-05-28 17:25 | ECG_ITS ---
Test Date: 2025-05-28 16:11:03 Measurements Intervals [place] Rate: 71 P: 26 UT: 152 QRS: 90 QRSD: 101 T: 81 QT: 355 QTc: 386 Interpretive Statements SINUS RHYTHM INCOMPLETE RIGHT BUNDLE BRANCH BLOCK [90+ ms QRS DURATION, TERMINAL R IN V1/V2, 40+ ms S IN I/aVL/V4/V5/V6] BORDERLINE ECG Compared to ECG 04/14/2025 11:23:38 No significant changes Electronically Signed On 05-29-2025 08:07:52 CDT by Helio Valentino M.D.
== END 2025-05-28 16:34 | disposition home or self-care (01) ==
PROVIDERS: Emergency Provider Nurse Practitioner Family; PCP Family Medicine
DX: R10.13 Epigastric pain (principal); F17.290 Nicotine dependence, other tobacco product, uncomplicated; K21.9 Gastro-esophageal reflux disease without esophagitis; F12.90 Cannabis use, unspecified, uncomplicated
CPT/HCPCS: 93005; 99213; G0463

== ENCOUNTER 2025-06-08 07:00 | Outpatient (CLI) | payer OTHER, SELFPAY ==
--- NOTE | ~2025-06-08 | CT_ITS ---
CT of the Abdomen and Pelvis: Indication: Epigastric pain Technique: 2.5 mm axial scans were obtained through the abdomen and pelvis following intravenous adm inistration of 100 cc of Omnipaque 350. Dose reduction technique was used on this scan by utilizing a utomated exposure control and iterative reconstruction technique. The dose-length product (DLP) was 1 88.83 mGy-cm. Findings: Scans through the lung bases are unremarkable. The liver, spleen, pancreas, gallbladder, adrenals and kidneys are within normal limits. No evidence of aortic aneurysm. No lymphadenopathy. Questionable minimal wall thickening of ascending colon. No bowel obstruction. Images through the pelvis were performed. Urinary bladder unremarkable. No pelvic mass seen. No ascit es. Impression: Questionable minimal wall thickening of ascending colon. Correlate for infectious/inflammatory coliti s. Reviewed, dictated and finalized at location . Impression: Questionable minimal wall thickening of ascending colon. Correlate for infectio us/inflammatory colitis.
--- OUTSIDE RECORDS SUMMARY | 2025-06-08 07:04 | XMS_ITS | Clinical Summary ---
Author Organization [facility] Address [address] [place] [address] Care Team Providers Care Forensic Medical Examiner Name Role Phone John PICKERING MD, Julio Santiago Primary Care Provider [phone] Source Comments [facility] [employer],non-owned Affiliates and Associated Physician Practices is amultiple site organization consisting of ambulatory clinics and hospital sitesin [place], [place], [place] and [place]. This disclosure is being madepursuant to the Care Everywhere program and may not contain all information available regarding this patient. Last updated 18.[facility] Allergies No known active allergies Medications * Be aware that medications may not be up to date on this document. Alwaysverify current medications with the patient. 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
--- OUTSIDE RECORDS SUMMARY | 2025-06-08 07:04 | XMS_ITS | Clinical Summary ---
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
--- OUTSIDE RECORDS SUMMARY | 2025-06-08 07:04 | XMS_ITS | Clinical Summary ---
Author Organization [facility] Address [address] [place] [address] Care Team Providers Care Terminal Make Up Operator Name Role Phone None, Provider MD Primary [...] place to sleep or slept in a longterm (including now)? No 11/16/2022 Sex and Gender Information Value Date Recorded Sex Assigned at Not on file Legal Sex Male 7:38 PM CDT Gender Identity Not on file Sexual Orientation Not on file Last Filed Vital Signs Vital Sign Reading Time Taken Comments Blood Pressure 134/62 11/17/2022 5:00 AM FEDERAL APPELLATE CLERK Pulse 73 11/17/2022 7:00 AM FEDERAL APPELLATE CLERK Temperature 36.4 C (97.5 F) 11/17/2022 7:00 AM FEDERAL APPELLATE CLERK Respiratory Rate 16 11/17/2022 7:00 AM FEDERAL APPELLATE CLERK Oxygen Saturation 99% 11/17/2022 7:00 AM FEDERAL APPELLATE CLERK Inhaled Oxygen Concentration - - Weight 58.3 kg (128 lb 8.5 oz) 11/17/2022 5:00 A M FEDERAL APPELLATE CLERK Height 180.3 cm (5' 11) 11/15/2022 11:31 PM FEDERAL APPELLATE CLERK Body Mass Index 17.93 11/15/2022 11:31 PM FEDERAL APPELLATE CLERK Plan of Treatment Health Maintenance Due Date Last Done Comments Annual Physical 1995 Hepatitis C 2010 Hepatitis B Vaccines (1 of 3 - 19+ 3-dose series) 2011 Pneumococcal Vaccine: Pediatrics (0 to 5 Years) and At-Risk Patients (6 to 49 Years) (1 of 2 - PCV) 2011 HPV Vaccines (1 - 3-dose SCD M series) 2019 COVID-19 Vaccine ( - 2023-2 5 season) 2024 DTaP, Tdap and Td Vaccines ( 2 - Td or Tdap) 02/06/2026 02/07/2016, 11/10/2015 Meningococcal B Vaccine Aged Out No l onger eligible based on patient's age to complete this topic Meningococcal Vaccine Aged Out No moy aries eligible based on patient's age to complete this topic RSV Immunizations Under 20 Months Aged Out No longer eligible b ased on patient's age to complete this topic Insurance Advance Directives * Full Code (Latest Code Status on File) Date Activated Date Inactivated Comments 11/16/2022 9:00 AM 11/17/2022 2:43 PM Care Teams Terminal Make Up Operator Relationship Specialty Start Date End Date None, Provider, PCP - General 08/23/19
--- OUTSIDE RECORDS SUMMARY | 2025-06-08 07:04 | XMS_ITS | Referral Summary ---
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
== END 2025-06-08 07:01 | disposition home or self-care (01) ==
PROVIDERS: PCP Family Medicine; Visit Provider Nurse Practitioner Family
DX: R10.13 Epigastric pain (principal); R11.2 Nausea with vomiting, unspecified
CPT/HCPCS: 74177; Q9967

== ENCOUNTER 2025-11-09 15:42 | Emergency (ER) | payer SELFPAY ==
--- OUTSIDE RECORDS SUMMARY | 2025-11-09 15:45 | XMS_ITS | Data Portability ---
Author Organization [place] - [employer], Main Office Address [address] [place] [address] Care Team Providers Care Carriage Rider Name Role Phone PAYAN RUBÉN Primary Care [...] understanding it. Cont f/u with Psych at [facility] as per schedule. F/u in few weeks as directed. [email or web address] Not available 07/23/2023 17:01:32 08/13/2023 08/13/2023 33 yo M with - WELL ADULT VISIT - ADHD - ANXIETY - IBS - FOOD ALLERGIES - SMOKER D/w pt in detail about his findings and further plan of care. Will do routine labs, cxr. Will refer pt to Ship Pilot Dispatcher. Meds as directed. Advised pt to talk with close friend/family member on a regular basis. Educated about alarming symptoms to monitor at home and call us back Or get checked in ED. Pt verbalized understanding it. Diet and exercise explained in detail. Safe sex education given. F/u with Ship [employer] Dispatcher as per schedule. Cont f/u with Psych at [facility] as per schedule. HM: Flu - Pt declined. Tdap, Gardasil - At pharmacy/HD. F/u in 2 weeks. Annual labs in 09/02. Not available 08/13/2023 09:40:04 09/04/2023 09/04/2023 33 [...] detail. Safe sex education given. F/u with Ship Pilot Dispatcher as per schedule. Cont f/u with Psych at [facility] as per schedule. HM: Flu - Pt declined. Tdap, Gardasil - At pharmacy/HD. F/u in 2-3 months. Annual labs in 09/02. [email or web address] Not available 09/04/2023 12:18:45 04/19/2025 04/19/2025 Educated pt about alarming symptoms to monitor at home. Not available 04/19/2025 11:29:33 06/07/2025 06/07/2025 D/w pt about his findings and further plan of care. Explained about different options for her. Pt declined to go to ED. FMLA paperwork filled out and given to pt. Since pt is getting work up by GI, will not do any from us. Pt agreed. Meds as directed. Good liquid and fiber intake explained. Educated pt about alarming symptoms to monitor at home and call us back or get checked in ED. Pt verbalized understanding it. F/u as directed. [email or web address] Not available 06/07/2025 17:41:44 Plan of Treatment Reminders Order Date Submit Date Provider Last Modified By Organization Details Last Modified Time Details Appointments None recorded. Lab vitamin D, 25-hydroxy, total, serum [address] (Lab), [address] [place], [address], 08:59:17 HbA1c (hemoglobin A1c), blood [address] (Lab), [address] [place], [address], 08:59:17 CMP, serum or plasma 2022 023 [facility] (Lab), [address] [place], [address], 14:23:46 CBC w/ auto diff 2022 023 [facility] (Lab), [address] [place], [address], 13:20:52 lipid panel, blood [address] (Lab), [address] [place], [address], 08:59:17 TSH, serum, reflex free T4 [address] (Lab), [address] [place], [address], 08:59:17 urinalysis complete, reflex culture [address] (Lab), [address] [place], [address], 08:59:17 Referral cardiologis t referral - Please call patient to schedule an appointment . Thank you. 2024 025 [email or web address] [facility], [address], [address], [place], [address], 5 13:16:07 installation coordinator referral 2022 023 [email or web address] 3 [facility], [address] [facility], [facility] Level [address], [place], [address], 08:01:09 Procedures None recorded. Surgeries None recorded. Imaging XR, chest, 2 view 2022 023 [email or web address] Not available 3 09:27:29 Medication Orders ondansetron 4 mg disintegrat ing tablet 2024 025 [facility] #30576, [address] [place] [address], [id number], 5 05:02:16 ciprofloxac in 500 mg tablet 2024 025 [facility] #73155, [address] [place] [address], [id number], 5 05:01:50 metronidazo le 500 mg tablet 2024 025 [facility] #82137, [address] [place] [address], [id number], 5 05:01:50 ondansetron HCl 4 mg tablet [email or web address] [facility] #19361, [address] [place] [address], [id number], 5 11:29:09 famotidine 20 mg tablet 2024 025 [facility] #44130, [address] [place] [address], [id number], 5 11:23:26 buspirone 10 mg tablet [email or web address] [facility] #18530, [address] [place] [address], [id number], 5 11:21:42 bupropion HCl SR 150 mg tablet,12 hr sustained-r elease 2022 023 [email or web address] [facility] #76297, [address] [place] [address], [id number], 5 11:21:39 buspirone 10 mg tablet 2022 023 [email or web address] [facility] #31074, [address] [place], [id number], 5 11:21:42 bupropion HCl SR 150 mg tablet,12 hr sustained-r elease 2022 023 [facility] #57225, [address] [place], [place], [id number], 11:21:39 Patient TargetsNo targets recorded. Patient Instructions Encounter Date Encounter Id Patient Instructions Last Modified By Organization Details Last Modified Time 07/23/2023 [id number] irritable bowel syndrome: care instructions [email or web address] Not available 07/23/2023 17:02:07 Reason for Referral Ship Pilot Dispatcher Referral for Aller gy to food Referring Physician: Rubén Payan [facility], Encounter Date: 08/13/2023 Marriage Performer Referral for At ypical chest pain Chronic intermittent chest pain for last 2-3 yrs Please call patient to schedule an appointment. Thank you. Referring Physician: Rubén Payan [facility], Encounter Date: 04/19/2025 Results Created Date Observation Date Name Description Value Unit Range Abnormal Flag Note LastModifiedBy Organization Detail LastModifiedTime 08/13/2008/13/2023 CBC/C OMPLE TE BLD COUNT W/DIF F white blood cells 6.9 x10'3 /uL 4.2-10 .8 Not Available [facility] (Lab) [address] [place], [address], 08/13/2023 13:20:52 08/13/2008/13/2023 CBC/C OMPLE TE BLD COUNT W/DIF F red blood cells 5.23 x10'6 /uL 4.10-5 .80 Not Available [facility] (Lab) [address] [place], [address], 08/13/2023 13:20:52 08/13/2008/13/2023 CBC/C OMPLE TE BLD COUNT W/DIF F hemoglobin 16.8 g/dL 13.2-1 7.0 Not Available [facility] (Lab) [address] [place], [address], 08/13/2023 13:20:52 08/13/2008/13/2023 CBC/C OMPLE TE BLD COUNT W/DIF F hematocrit 48.8 % 39.3-5 0.0 Not Available [facility] (Lab) [address] [place], [address], 08/13/2023 13:20:52 08/13/2008/13/2023 CBC/C OMPLE TE BLD COUNT W/DIF F mean red cell volume 93.3 fL 80.0-9 7.0 Not Available [facility] (Lab) [address] [place], [address], 08/13/2023 13:20:52 08/13/2008/13/2023 CBC/C OMPLE TE BLD COUNT W/DIF F mean red cell hemoglobin 32.1 pg 27.0-3 3.0 Not Available [facility] (Lab) [address] [place], [address], 08/13/2023 13:20:52 08/13/2008/13/2023 CBC/C OMPLE TE BLD COUNT W/DIF F mean RBC HGB concentratio n 34.4 g/dL 31.0-3 6.0 Not Available [facility] (Lab) [address] [place], [address], 08/13/2023 13:20:52 08/13/20 23 08/13/2023 CBC/C OMPLE TE BLD COUNT W/DIF F red cell distribution width 11.2 % 11.8-1 5.5 low Not Available [facility] (Lab) [address] [place], [address], 08/13/2023 13:20:52 08/13/2008/13/2023 CBC/C OMPLE TE BLD COUNT W/DIF F platelets 335 x10'3 /uL 150-40 0 Not Available [facility] (Lab) [address] [place], [address], 08/13/2023 13:20:52 08/13/2008/13/2023 CBC/C OMPLE TE BLD COUNT W/DIF F mean platelet volume 9.3 fL 9.0-12 .4 Not Available [facility] (Lab) [address] [place], [address], 08/13/2023 13:20:52 08/13/2008/13/2023 CBC/C OMPLE TE BLD COUNT W/DIF F neutrophils 49.1 % 39.0-7 2.0 Not Available [facility] (Lab) [address] [place], [address], 08/13/2023 13:20:52 08/13/2008/13/2023 CBC/C OMPLE TE BLD COUNT W/DIF F lymphocytes 31.5 % 16.0-4 7.0 Not Available [facility] (Lab) [address] [place], [address], 08/13/2023 13:20:52 08/13/2008/13/2023 CBC/C OMPLE TE BLD COUNT W/DIF F monocytes 13.0 % 5.0-12 .0 high Not Available [facility] (Lab) [address] [place], [address], 08/13/2023 13:20:52 08/13/2008/13/2023 CBC/C OMPLE TE BLD COUNT W/DIF F eosinophils 4.8 % 1.0-7. 0 Not Available [facility] (Lab) [address] [place], [address], 08/13/2023 13:20:52 08/13/2008/13/2023 CBC/C OMPLE TE BLD COUNT W/DIF F basophils 1.3 % 0.0-2. 0 Not Available [facility] (Lab) [address] [place], [address], 08/13/2023 13:20:52 08/13/2008/13/2023 CBC/C OMPLE TE BLD COUNT W/DIF F immature granulocytes 0.3 % 0.00-0 .50 Not Available [facility] (Lab) [address] [place], [address], 08/13/2023 13:20:52 08/13/2008/13/2023 CBC/C OMPLE TE BLD COUNT W/DIF F neutrophils, absolute count 3.37 x10'3 /uL 1.5-8. 0 Not Available [facility] (Lab) [address] [place], [address], 08/13/2023 13:20:52 08/13/2008/13/2023 CBC/C OMPLE TE BLD COUNT W/DIF F lymphocytes, absolute count 2.16 x10'3 /uL 1.07-3 .43 Not Available [facility] (Lab) [address] [place], [address], 08/13/2023 13:20:52 08/13/2008/13/2023 CBC/C OMPLE TE BLD COUNT W/DIF F monocytes, absolute count 0.89 x10'3 /uL 0.29-0 .99 Not Available [facility] (Lab) [address] [place], [address], 08/13/2023 13:20:52 08/13/2008/13/2023 CBC/C OMPLE TE BLD COUNT W/DIF F eosinophils, absolute count 0.33 x10'3 /uL 0.02-0 .53 Not Available [facility] (Lab) [address] [place], [address], 08/13/2023 13:20:52 08/13/2008/13/2023 CBC/C OMPLE TE BLD COUNT W/DIF F basophils, absolute count 0.09 x10'3 /uL 0.01-0 .08 high Not Available [facility] (Lab) [address] [place], [address], 08/13/2023 13:20:52 08/13/2008/13/2023 CBC/C OMPLE TE BLD COUNT W/DIF F immature granulocytes ,absolute 0.02 x10'3 /uL 0.00-0 .05 Not Available [facility] (Lab) [address] [place], [address], 08/13/2023 13:20:52 08/13/2008/13/2023 CBC/C OMPLE TE BLD COUNT W/DIF F nucleated red blood cells 0.0 % -0 Not Available [facility] (Lab) [address] [place], [address], 08/13/2023 13:20:52 08/13/2008/13/2023 CBC/C OMPLE TE BLD COUNT W/DIF F NRBC# 0.00 x10'3 /uL Not Available [facility] (Lab) [address] [place], [address], 08/13/2023 13:20:52 08/13/2008/13/2023 LIPID PANEL cholesterol 181 mg/dL 140-19 9 NIH FABIAN NSUS RECOM MENDA TION FOR SARAHI STERO L: ADULT CHILD LOW RISK: <200 <170 BORDE RLINE : <200- 239 ----- HIGH RISK: >240 >200 Not Available [facility] (Lab) [address] [place], [address], 08/13/2023 14:23:40 08/13/2008/13/2023 LIPID PANEL triglyceride s 88 mg/dL 0-150 NIH FABIAN NSUS REPOR T RECOM MENDA TION FOR TRIGL YCERI MARY NANE: ADULT CHILD LOW RISK: <150 ----- BODER LINE: 150-1 99 ----- HIGH RISK: >200 ----- Not Available [facility] (Lab) [address] [place], [address], 08/13/2023 14:23:40 08/13/2008/13/2023 LIPID PANEL HDL cholesterol 45 mg/dL 40- Not Available [facility] (Lab) [address] [place], [address], 08/13/2023 14:23:40 08/13/2008/13/2023 LIPID PANEL LDL cholesterol, [...] WILL NOT BE REPOR HOME. Not Available [facility] (Lab) [address] [place], [address], 08/13/2023 14:23:40 08/13/2008/13/2023 COMPR EHENS MIAH METAB OLIC PANEL sodium 141 mmol/ L 137-14 5 Not Available [facility] (Lab) [address] [place], [address], 08/13/2023 14:23:45 08/13/2008/13/2023 COMPR EHENS MIAH METAB OLIC PANEL potassium 4.4 mmol/ L 3.5-5. 1 Not Available [facility] (Lab) [address] [place], [address], 08/13/2023 14:23:45 08/13/2008/13/2023 COMPR EHENS MIAH METAB OLIC PANEL chloride 105 mmol/ L 98-107 Not Available [facility] (Lab) [address] [place], [address], 08/13/2023 14:23:45 08/13/2008/13/2023 COMPR EHENS MIAH METAB OLIC PANEL carbon dioxide 27 mmol/ L 22-30 Not Available [facility] (Lab) [address] [place], [address], 08/13/2023 14:23:45 08/13/2008/13/2023 COMPR EHENS MIAH METAB OLIC PANEL anion gap 13.4 mmol/ L 14-22 low Not Available [facility] (Lab) [address] [place], [address], 08/13/2023 14:23:45 08/13/2008/13/2023 COMPR EHENS MIAH METAB OLIC PANEL glucose 90 mg/dL 70-99 Not Available [facility] (Lab) [address] [place], [address], 08/13/2023 14:23:45 08/13/2008/13/2023 COMPR EHENS MIAH METAB OLIC PANEL BUN 17 mg/dL 8-19 Not Available [facility] (Lab) [address] [place], [address], 08/13/2023 14:23:45 08/13/2008/13/2023 COMPR EHENS MIAH METAB OLIC PANEL creatinine 0.82 mg/dL 0.66-1 .25 Not Available [facility] (Lab) [address] [place], [address], 08/13/2023 14:23:45 08/13/20 23 08/13/2023 COMPR EHENS MIAH METAB OLIC PANEL GFR >60 Refer ence Range : [place] ge GFR Healt hy Adult : >60 [...] or ethni c subgr oups, such as Hispa nics. Outsi de the valid ated tracy [...] calcu lator is avail able on the [facility] websi te: https :[email or web address] [email or web address] lam.o otilio/pr ajith gonzalezal s/wendyo qi/gf r_cal culat or Not Available [facility] (Lab) [address] [place], [address], 08/13/2023 14:23:45 08/13/2008/13/2023 COMPR EHENS MIAH METAB OLIC PANEL alkaline phosphatase 73 U/L 38-126 Not Available [facility] (Lab) [address] [place], [address], 08/13/2023 14:23:45 08/13/2008/13/2023 COMPR EHENS MIAH METAB OLIC PANEL alanine aminotransfe rase 25 U/L 0-50 Not Available [facility] (Lab) [address] [place], [address], 08/13/2023 14:23:45 08/13/20 23 08/13/2023 COMPR EHENS MIAH METAB OLIC PANEL aspartate aminotransfe rase 29 U/L 15-46 Not Available [facility] (Lab) [address] [place], [address], 08/13/2023 14:23:45 08/13/20 23 08/13/2023 COMPR EHENS MIAH METAB OLIC PANEL bilirubin, total 0.80 mg/dL 0.20-1 .30 Not Available [facility] (Lab) [address] [place], [address], 08/13/2023 14:23:45 08/13/2008/13/2023 COMPR EHENS MIAH METAB OLIC PANEL calcium 10.1 mg/dL 8.4-10 .2 Not Available [facility] (Lab) [address] [place], [address], 08/13/2023 14:23:45 08/13/2008/13/2023 COMPR EHENS MIAH METAB OLIC PANEL total protein 7.6 g/dL 6.3-8. 2 Not Available [facility] (Lab) [address] [place], [address], 08/13/2023 14:23:45 08/13/20 23 08/13/2023 COMPR EHENS MIAH METAB OLIC PANEL albumin 4.8 g/dL 3.4-5. 0 Not Available [facility] (Lab) [address] [place], [address], 08/13/2023 14:23:45 08/13/2008/13/2023 COMPR EHENS MIAH METAB OLIC PANEL globulin 2.8 g/dL 2.6-4. 2 Not Available [facility] (Lab) [address] [place], [address], 08/13/2023 14:23:45 08/13/2008/13/2023 COMPR EHENS MIAH METAB OLIC PANEL A/G ratio 1.7 ratio 1.0-2. 0 Not Available [facility] (Lab) [address] [place], [address], 08/13/2023 14:23:45 08/13/2008/13/2023 VITAM IN D 25-HY DROXY [id number] 47.1 NG/mL 30-100 Vitam in D Statu s: Defic ient: <20 ng/mL Insuf ficie nt: 20-29 ng/mL Suffi cient : 30-10 0 ng/mL Not Available [facility] (Lab) [address] [place], [address], 08/13/2023 14:41:44 08/13/2008/13/2023 TSH W/REF SIDNEY FT4 TSH with reflex free T4 0.719 uIU/m L 0.465- 4.680 Not Available [facility] (Lab) [address] [place], [address], 08/13/2023 14:59:41 08/13/2008/13/2023 HEMOG LOBIN A1C HA1C 5.0 % 4.0-6. 0 Diabe michael Scree nani Crite mayco: <5.7% Consi stent with absen ce of diabe michael 5.7-6 .4% Consi stent with incre ased risk for diabe michael (pred iabet es) >OR=6 .5% Consi stent with diabe michael REFER ENCE: Diabe michael Care 2016, 39(Johnson ppl.1 ):s13 -s22 Not Available [facility] (Lab) [address] [place], [address], 08/13/2023 20:31:58 06/14/20 25 06/08/2025 CT, abdom en + pelvi s, w/ contr ast No observ ation record ed. [email or web address] [place] [id number], [place], [address], 06/14/2025 10:24:53 Result Notes None recorded. Problems Name Problem SNOMED Code Status Onset Date Resolution Date Notes Provider Name and Address Organization Details Recorded Time Attention deficit hyperactivity disorder, predominantly inattentive type 69527182 Active 2022 Rubén Payan MD [address], [address], [place], [address], [employer] 3 16:45:55 Anxiety disorder 511997702 Active 2022 Rubén Payan MD [address], [address], [place], [address], [employer] 3 16:46:00 Irritable bowel syndrome 58251064 Active 2022 Rubén Payan MD [address], [address], [place], [address], [employer] 5 11:15:43 Smoker 36870745 Active 2022 Rubén Payan MD [address], [address], [place], [address], [employer] 3 16:47:21 Allergy to food 860842794 Active 2022 Rubén Payan MD [address], [address], [place], [address], [employer] 3 09:31:09 Muscle tension pain 235383665 Active 2024 Rubén Payan MD [address], [address], [place], [address], [employer] 5 11:16:25 Gastroesophage al reflux disease without esophagitis 025850541 Active 2024 Rubén Payan MD [address], [address], [place], [address], [employer] 5 11:16:47 Atypical chest pain 994090100 Active 2024 Rubén Payan MD [address], [address], [place], [address], [employer] 5 11:18:25 Nausea 612139083 Active 2024 Rubén Payan MD [address], [address], [place], [address], [employer] 5 11:22:00 Family history of stroke 732761186 Active 2024 Rubén Payan MD [address], [address], [place], [address], [employer] 5 11:28:17 Gastroenteriti s 14031794 Active 2024 Rubén Payan MD [address], [address], [place], [address], [employer] 5 17:17:13 Nausea and vomiting 69627955 Active 2024 Rubén Payan MD [address], [address], [place], [address], [employer] 5 17:18:16 Problem Notes None recorded. Procedures Surgical History Date Name Laterality Status Provider Name and Address Organization Details Recorded Time 3 Smoking Cessation completed Rubén Payan MD [address], [facility] [[email or web address] [address], [place], [address], [employer] 07/23/2023 16:50:32 Imaging Results None recorded. Procedure Notes None recorded. Medical Equipment None Reported. Allergies No known drug allergies Medications Name Sig Start Date Stop Date Status Note LastModified by Organization Details LastModified Time bupropion HCl SR 150 mg tablet,12 hr sustained-r elease TAKE 1 TABLET BY MOUTH TWICE DAILY DIRECTED 04/19 completed Not Available Not Available Not Available sucralfate 1 gram tablet TAKE 1 TABLET BY MOUTH BEFORE MEALS AND AT BEDTIME active Not Available Not Available No t Available ondansetron HCl 4 mg tablet TAKE 1 TABLET BY MOUTH EVERY DAY FOR 20 DAYS NEEDED active Not Available Not Available No t Available metronidazo le 500 mg tablet Take 1 tablet every 8 hours by oral route as directed for 5 days. 06/19 completed Not Available Not Available Not Available ciprofloxac in 500 mg tablet Take 1 tablet every 12 hours by oral route as directed for 5 days. 06/19 completed Not Available Not Available Not Available ondansetron 8 mg disintegrat ing tablet DISSOLVE 1 TABLET ON THE TONGUE EVERY 8 HOURS FOR 3 DAYS active Not Available Not Available No t Available alprazolam 0.25 mg tablet TAKE 1 TABLET BY MOUTH FOUR TIMES DAILY active Not Available Not Available No t Available famotidine 20 mg tablet TAKE 1 TABLET BY MOUTH TWICE DAILY DIRECTED active Not Available Not Available No t Available amitriptyli ne 10 mg tablet Take 1 tablet every day by oral route at bedtime. 2024 active Not Available Not Available Not Avai lable pantoprazol e 40 mg tablet,damir yed release TAKE 1 TABLET BY MOUTH AT BEDTIME FOR 4 WEEKS active Not Available Not Available No t [...] Available ondansetron 4 mg disintegrat ing tablet Place 1 tablet every 6-8 hours by transling ual route as needed for 7 days. 06/21 completed Not Available Not Available Not Available Vitals Date Recorded Body height Body mass index (BMI) Body weight Body temperature Oxygen saturation Heart rate Systolic And Diastolic Provider Name and Address Organization Details Last Updated DateTime 5 180.34 cm 19.4 kg/m2 04798.3 9 g 98.1 [degF] 99 % 62 /min 112/70 mm[Hg] Pratima Persaud RN [employer] 11:11:57 Date Recorded Heart rate Provider Name an d Address Organization Details Last Updated DateTime 06/07/2025 112 /min Christiana Carmona [address] [facility], [facility] [[email or web address]] [address], [place], [address], [employer] 06/07/2025 17:11:42 Date Recorded Body height Body mass index (BMI) Body weight Body temperature Oxygen saturation Systolic And Diastolic Provider Name and Address Organization Details Last Updated DateTime 5 180.34 cm 18.5 kg/m2 27167.9 4 g 100.4 [degF] 98 % 120/70 mm[Hg] Pratima Persaud RN [facility] [email or web address] [facility] 5 17:08:35 Date Recorded Body weight Body temperature Heart rate Respiratory rate Oxygen saturation Systolic And Diastolic Provider Name and Address Organization Details Last Updated DateTime 3 65502.6 9 g 97.1 [degF] 79 /min 16 /min 99 % 126/60 mm[Hg] [facility] [email or web address] [facility] 3 16:42:15 Date Recorded Body height Body mass index (BMI) Body weight Body temperature Heart rate Respiratory rate Oxygen saturation Systolic And Diastolic Provider Name and Address Organization Details Last Updated DateTime 3 175.26 cm 20 kg/m2 80758.6 7 g 98.1 [degF] 70 /min 16 /min 98 % 108/60 mm[Hg] [facility] [employer] [facility] 3 09:26:06 Date Recorded Body height Body mass index (BMI) Body weight Body temperature Heart rate Respiratory rate Oxygen saturation Systolic And Diastolic Provider Name and Address Organization Details Last Updated DateTime 3 175.26 cm 19.5 kg/m2 14496.5 4 g 98 [degF] 90 /min 16 /min 99 % 110/66 mm[Hg] [facility] [email or web address] [facility] 3 12:12:28 Social History Question Answer Notes LastModified by Organizat ion Details LastModified Time Tobacco Smoking Status Current Every Day Smoker Rubén Payan MD [address] [place] [address], [address], [facility] [employer] [facility] 07/23/2023 16:58:39 Do You Have An Advance [...] Or The Highest Degree You Have Received? [id number] Information not available 07/23/2023 Have There Been [...] Do You Have A Medical Power Of Executive Vice President Of [employer]? Yes Information not available 07/23/2023 What Is [...] anxious, or unable to sleep at night)? [id number] Information not available 07/23/2023 Family History Relationship [...] DISEASE/DISORDER N HISTORY OF DRUG ABUSE N RADIATION / CHEMOTHERAPY N COPD N Other # 2 N BLOOD DISEASES N SURGERY N EAR OR HEARING PROBLEMS N MUMPS N SHINGLES N FEMALE PROBLEMS / INFECTIONS N DEPRESSION (INCLUDING POST ) N BOWEL PROBLEMS N FAILED BACK SYNDROME N STROKE/TIA N THYROID DISEASE N ULCERS N BENIGN PROSTATIC HYPERPLASIA N MEASLES N CERVICALGIA N TB SKIN TEST N HYPOTENSION N MYOCARDIAL INFARCTION N PARAPELGIA N OBESITY N GERD/NAUSEA N ANEURYSM N URINARY/BLADDER/KIDNEY PROBLEMS N CORONARY ARTERY DISEASE (CAD) N MENIERE'S DISEASE N Do you have Advance directive? N ADDICTION CONCERNS N ENDOMETRIOSIS N USE [...] HAVE YOU BEEN HOSPITALIZED OR SEEN IN [facility] IN THE PAST YEAR ? N [...] Diagnosis SNOMED-CT Code Diagnosis ICD10 Code Diagnosis IMO Codes Diagnosis Note [id number] Rubén Payan MD [address] [address] 07/23/2023 16:13:34 07/23/2023 17:01:08 Attention deficit hyperactivity disorder, predominantly inattentive type 64391649 F90.0 Anxiety disorder F41.9 Irritable bowel syndrome 56165613 K58.9 Smoker 97785504 F17.093 [id number] Rubén Payan MD [address] [address] 08/13/2023 09:17:41 08/13/2023 09:56:20 Adult health examination 399174180 Z00.00 Smoker 07459681 F17.200 Screening for disorder 037514781 Z13.9 Diabetes m ellitus screening 142527306 Z13.1 Allergy to food 72582737 1 T78.1XXA Anxiety disorder 06 F41.9 [id number] Rubén Payan MD [address] [address] 09/04/2023 12:04:38 09/04/2023 12:23:00 Smoker 15194917 F17.200 Allergy to food 57466120 1 T78.1XXA Anxiety disorder 06 F41.9 Attention deficit hyperactivity disorder, predominantly inattentive type 35407763 F90.0 [id number] Rubén Payan MD [address] [address] 04/19/2025 10:59:00 04/19/2025 11:25:03 Irritable bowel syndrome [id number] K58.9 [id number] Muscle tension pain 2790 69020 M79.10 [id number] Gastroesop hageal reflux disease without esophagitis [id number] K21.9 288326 Atypical chest pain 1025 11897 R07.89 232767 Family his tory of stroke [id number] Z82.3 142123 Nausea [id number] R11.0 33825 Seen in department 02854 1009 Z76.89 [id number] Rubén Payan MD [facility] [address] [address] 06/07/2025 17:01:37 06/07/2025 17:31:29 Gastroenteritis [id number] K52.9 25054 Nausea and vomiting 1693 2000 R11.2 413061 Gastroesop hageal reflux disease without esophagitis [id number] K21.9 261679 Irritable bowel syndrome 34047659 K58.9 [id number] Anxiety disorder [id number] 06 F41.9 Health Concerns Section Related Observation LastModified by Organization Detai ls LastModified Time None Recorded Concern Status LastModified by Organization Details LastModified Time None Recorded Advance Directives Directive N: Payers Insurance Date Sequence Insurance Name Policy Number Policy Vee Covered Member ID Vee Member ID Guarantor Name 06/04/2025 1 [facility] ON OR AFTER 05/10/21 (MEDICAID REPLACEMENT - HMO) Freddie Zepeda [id number] Freddie Zepeda 06/03/2025 1 [facility] ON OR AFTER 11/10/2020 - DUAL ELIGIBLE (MEDICARE REPLACEMENT/AD VANTAGE - HMO) Freddie Garvin [id number] Freddie Zepeda Notes Date Note Type Note Provider Name and Address Organization Details Recorded Time 07/23/2023 text/html New pt visit:33 yo M is here to establish his care. Pt was seeing PCP at [place] in the past.Doing overall well. Needs refill on his meds. Pt has ADHD and anxiety and he is seeing Psych at [facility] for this. But he doesn't want to drive there every couple months for med refills. Denies any mood swings/SI/HI. No other concern.PM, and reviewed. Rubén Payan MD [address], [place], [address], [employer] 07/23/2023 17:02:19 08/13/2023 text/html Pt is here for his annual exam. Doing overall well. Needs refill on his meds. Pt has ADHD and anxiety and he is seeing Psych at [facility] for this. But he doesn't want to drive there every couple months for med refills. Denies any mood swings/SI/HI. Pt says he is not able to tolerate certain foods and wants to see an interior specialist for it.PM, FH and reviewed. Rubén Payan MD [address] [facility], [address], [place], [address], [employer] 08/13/2023 09:41:34 09/04/2023 text/html Pt is here for f/u on his annual labs. Doing overall well. Denies any problem with meds. Denies any new concern. Pt has not gone for cxr yet. Pt has ADHD and anxiety and he is seeing Psych at [facility] for this. But he doesn't want to drive there every couple months for med refills. Denies any mood swings/SI/HI. Pt says he is not able to tolerate certain foods and wants to see an interior specialist for it. Rubén Payan MD [address], [address], [place], [address], [employer] 09/04/2023 12:56:04 04/19/2025 text/html ACV: C/o central chest and epigastric area pain for last 4-5 days, it has been happening for last several years. Pt wants to see a glass forming crew member for it. Denies any symptoms in the [...] visit in 09/01. Rubén Payan MD [address], [facility] [[email or web address]] [address], [place], [address], [facility] [employer] [facility] [employer] 04/19/2025 11:31:12 06/07/2025 text/html ACV: C/o central abdominal area and chest area burning pain for last few months. Pt was seen in on 05/28/25 for this and on 05/31/25 she was seen by GI doctor at [facility] and he will be getting CT scan by them tomorrow. Pt has [facility] paperwork to be filled out today, so he don't lose his job. 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 Nausea and vomiting ++, no diarrhea/blood in stool. Pt has not seen Cardio yet. Rubén Payan MD [address], [facility] [[email or web address]] [address], [place], [address], [employer] 06/07/2025 17:44:17
--- OUTSIDE RECORDS SUMMARY | 2025-11-09 15:45 | XMS_ITS | Clinical Summary ---
Author Organization [facility] Address [address] [place] [address] Care Team Providers Care Marriage Counselor Name Role Phone None, Provider MD Primary [...] place to sleep or slept in a custodial (including now)? 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 Pulse 73 11/17/2022 7:00 AM BOILER OPERATOR HELPER Temperature 36.4 C (97.5 F) 11/17/2022 7:00 AM BOILER OPERATOR HELPER Respiratory Rate 16 11/17/2022 7:00 AM BOILER OPERATOR HELPER Oxygen Saturation 99% 11/17/2022 7:00 AM BOILER OPERATOR HELPER Inhaled Oxygen Concentration - - Weight 58.3 kg (128 lb 8.5 oz) 11/17/2022 5:00 AM BOILER OPERATOR HELPER Height 180.3 cm (5' 11) 11/15/2022 11:31 PM BOILER OPERATOR HELPER Body Mass Index 17.93 11/15/2022 11:31 PM BOILER OPERATOR HELPER Plan of Treatment Health Maintenance Due Date Last Done Comments Annual Physical 1995 Hepatitis C 2010 Hepatitis B Vaccines (1 of 3 - 19+ 3-dose series) 2011 Pneumococcal Vaccine: Pediatrics (0 to 5 Years) and At-Risk Patients (6 to 49 Years) (1 of 2 - PCV) 2011 HPV Vaccines (1 - 3-dose SCD M series) 2019 COVID-19 Vaccine ( - 2024-2 6 season) 2025 Influenza Adult (#1) 2025 DTaP, Tdap and Td Vaccines ( 2 - Td or Tdap) 02/06/2026 02/07/2016, 11/10/2015 Hepatitis A Vaccines Aged Out No long er eligible based [...] patient's age to complete this topic Insurance [employer] Advance Directives * Full Code (Latest Code Status on File) Date Activated Date Inactivated Comments 11/16/2022 9:00 AM 11/17/2022 2:43 PM Care Teams Marriage Counselor Relationship Specialty Start Date End Date None, Provider, PCP - General 08/23/19
--- OUTSIDE RECORDS SUMMARY | 2025-11-09 15:45 | XMS_ITS | Clinical Summary ---
Author Organization [facility] Address [address] [place] [address] Care Team Providers Care Fish Roe Processor Name Role Phone John PICKERING MD, Julio Santiago Primary Care Provider [phone] [facility],non-owned Affiliates and Associated Physician Practices is amultiple site organization consisting of ambulatory clinics and hospital sitesin [place], [place], [place] and [place]. This disclosure is being madepursuant to the Care Everywhere program and may not contain all information available regarding this patient. Last updated 18.[facility] [employer] Allergies No known active allergies Medications * Be aware that medications may not be up to date on this document. Alwaysverify current medications with the patient. 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
--- OUTSIDE RECORDS SUMMARY | 2025-11-09 15:45 | XMS_ITS | Clinical Summary ---
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
--- NOTE | 2025-11-09 15:46 | ED.URI ---
HPI - URI/Sore Throat General Chief Complaint: Upper Respiratory Infection Stated Complaint: Flu Like Time Seen by Provider: 11/09/25 15:45 Source: patient Mode of arrival: ambulatory Limitations: no limitations History of Present Illness HPI Narrative: Patient is a 35-year-old male who presents with 5 days of sore throat, headache, body aches, fever and chills. Symptoms worsened yesterday. Has taken Tylenol and Tums. Related Data Allergies Allergy/AdvReac Type Severity Reaction Status Date / Time No Known Allergies Allergy Verified 11/09/25 15:54 Review of Systems Review of Systems: All systems reviewed & are unremarkable except as noted in HPI and below Constitutional: Constitutional: Reports chills, Denies fatigue, Reports fever(s), Reports headache(s), Denies malaise and Denies weakness Eyes: Eyes: Denies blurry vision, Denies itchy eyes and Denies loss of vision ENT: Denies otalgia, Reports headache(s), Denies nasal congestion, Denies sinus pain and Reports sore throat Cardiovascular: Cardiovascular: Denies chest pain, Denies irregular heart rhythm and Denies dyspnea Respiratory: Respiratory: Denies cough and Denies dyspnea Gastrointestinal: Gastrointestinal: Denies abdominal pain, Denies diarrhea, Denies nausea and Denies vomiting Musculoskeletal: Musculoskeletal: Denies back pain, Reports myalgias and Denies arthralgias Integumentary/Breasts: Skin/Breast: Denies pruritus and Denies rash Neurologic: Reports headache(s), Denies loss of vision and Denies weakness Psychiatric: Psychiatric: Reports no additional psychiatric complaints Endocrine: Endocrine: Denies fatigue Allergic/Immunologic: Allergic/Immunologic: Denies itchy eyes PMFSH Past Medical History Medical History Substance abuse IV heroin and synthetic marijuana GERD (gastroesophageal reflux disease) Anxiety Social History Social History Smoking packs per day: 0.25 Smoking cigarettes per day: 5.0 Years smoked: 15 Smoking pack-years: 3.75 Smoking status: Current every day smoker Alcohol intake: never Substance use: current Substance use type: marijuana Other substance usage details: Smoke every day Gender identity (if verbalized by the patient): Male Comments At time of signature, agree with nursing past medical, surgical, social and family history. There is no relevant family history pertinent to the presenting complaint. Exam Const: General: cooperative, healthy appearing, comfortable, no acute distress and well nourished Nutritional Appearance: well nourished Orientation/consciousness: patient oriented x3 Limitations: no limitations HENMT: Head: normal to inspection, normocephalic and atraumatic Ears: hearing grossly normal bilaterally, external ears normal, TM's normal bilaterally, EAC's normal and no periauricular adenopathy Face/Nose/Sinus: Normal external nose present, Normal nasal mucous membranes and turbinates present, normal facial exam, sinuses nontender and face symmetric Face and sinus: normal facial exam, sinuses nontender and face symmetric Mouth: Yes Normal oral and palatal mucosa present, Yes lip normal, Yes tongue normal, Yes Normal salivary glands and ducts present, Yes oropharynx normal and Yes moist mucous membranes Teeth and gingiva: dentition normal Throat: uvula midline, abnormal tonsil bilateral erythema, exudates and hypertrophy 3+ and posterior oropharynx abnormal erythema Eyes: General: appearance normal, both eyes and all related structures Alignment and Position: alignment normal and position normal Periorbital: periorbital findings normal Eyelids: eyelids normal Pupils: Equal, round and reactive pupils present Neck: Neck: normal visual inspection, full ROM, no lymphadenopathy and supple Chest: Chest palpation & inspection: normal inspection of the chest and normal palpation of entire chest wall Resp: Effort & Inspection: normal respiratory effort and able to speak in complete sentences Auscultation: clear to auscultation bilaterally, no crackles, no rales, no rhonchi and no wheezes Cardio: Rate: regular rate Rhythm: regular rhythm Heart sounds: S1 normal heart sound present and S2 normal heart sound present GI: Inspection: normal to inspection Skin: General skin exam: normal color and no rashes or lesions noted Neuro: General: patient oriented x3 and moves all extremities Cranial nerves: Yes Equal, round and reactive pupils present Speech: normal speech Gait exam (Neuro): Normal gait present Extrem: General: normal to inspection, full ROM and no edema Psych: Appearance: grossly normal and well kempt Mental Status: mental status grossly normal Speech and movement: Normal speech and movement present Affect: normal affect Attitude: cooperative Thought process: Normal thought process present Course Course Emergency Course: Patient is aware of diagnosis, understands and agrees to treatment plan. Anticipatory guidance given. Patient agrees to follow-up as directed and is aware of reasons to seek care at the emergency department. Portions of this record may have been created with voice recognition software Level of Care: Express Care Visit Vital Signs Vital signs: Vital Signs Temperature 36.7 C 11/09/25 15:57 Pulse Rate 102 H 11/09/25 15:57 Respiratory Rate 18 11/09/25 15:57 Blood Pressure 128/71 11/09/25 15:57 Pulse Oximetry 98 11/09/25 15:57 Oxygen Delivery Room Air 11/09/25 15:57 Temperature 36.7 C 11/09/25 15:57 Pulse Rate 102 H 11/09/25 15:57 Respiratory Rate 18 11/09/25 15:57 Blood Pressure 128/71 11/09/25 15:57 Pulse Oximetry 98 11/09/25 15:57 Oxygen Delivery Room Air 11/09/25 15:57 [facility] Narrative Medical decision making narrative: Patient positive for strep throat. Will treat with antibiotics Pt well hydrated appearing, in no respiratory distress, hemodynamically stable. Recommend supportive care. The patient is stable at time of discharge the clinical impression was discussed and the patient was given the opportunity to ask questions, which were addressed as completely as possible given the information available at present. Anticipatory guidance and return to care precautions were discussed and the importance of primary care follow-up was stressed and encouraged. The patient voiced understanding of the plan, indications to return, and the need for follow-up. Exam findings show no acute concerns or changes Patient is appropriate for outpatient treatment and follow-up. Differential Diagnosis Differential Diagnosis: Differential diagnosis considered: Jimenez virus, strep pharyngitis, allergic rhinitis, upper respiratory tract infection, sinusitis, rhinosinusitis, nasopharyngitis. viral pharyngitis, otitis media, otitis externa, otitis effusion, foreign body, cerumen impaction, viral syndrome, and influenza. Medical Records I have reviewed the following patient records and this information was taken into consideration when formulating the assessment and plan.: previous clinic visits Lab Data [facility] Lab Attestation statement: I personally reviewed the patient's lab results. Labs: Lab Results 11/09/25 11/09/25 Range/Units 16:02 16:10 POC Influenza A Ag Negative (Negative) POC Influenza B Ag Negative (Negative) POC SARS CoV-2 Ag Negative (Negative) POC Grp A Strep Screen Positive (Negative) Discharge Plan Discharge Clinical Impression: Strep throat Patient Disposition: Home Condition: Stable Instructions: Strep Throat (ED) Additional Instructions: Your rapid strep swab was positive today at [facility]. After 24 hours on antibiotics throw tooth brush away and start using a new one. Wash your sheets and cup/water bottle that is used daily. Do not share drinks. Take Motrin alternating with Tylenol for pain and fever alternating every 3 hours. 8 AM: Tylenol 11 AM: Ibuprofen 2 PM: Tylenol 5 PM: Ibuprofen 8 PM: Tylenol 11 PM: Ibuprofen 2 AM: Tylenol 5 AM: Ibuprofen Increase fluids, avoid caffeine. Other symptomatic treatments include: -Antihistamine medication such as Benadryl at night and Zyrtec/Claritin/Annita during the day can help improve symptoms. -Use Flonase twice a day for 5 days then daily to help reduce the inflammation and dry up your sinuses. -You can also use Sudafed or Mucinex. Be sure to drink plenty of water with these medications at least 8 ounces with every dose and it is important to drink 8 to 10 glasses of water per day. Water is a natural decongestant -Eat and drink things that are easy to swallow, like tea or soup, or popsicles. -Oral rinses such as: Salt water gargles and/or may use topical anesthetic (eg. Chloraseptic spray) or lozenges to relieve dryness or throat pain). -Frequent hand washing or hand senior game designer is one of the best ways to prevent spread of infection. -Using a vaporizer or humidifier at night will also help thin secretions and help with coughing up phlegm. -Follow up with primary care provider in 3-5 days if condition is not improving - For new or worsening symptoms go directly to the nearest ER Patient Language: Yi Prescriptions: New amoxicillin 500 mg capsule 500 mg PO BID 10 Days Qty: 20 0RF No Action amitriptyline 10 mg tablet 30 mg PO QHS Qty: 90 3RF Follow-up/Referrals: Romario Levy MD [Physician, Family Practice] - 3 Days Stand Alone Forms: Work/School Release IP Time of Disposition: 16:11
[2025-11-09 15:57] VITALS: BP 128/71; PULSE 102; RESP 18; TEMP 36.7; O2SAT 98
[2025-11-09 16:03] LABS: EDSTREPNEGPOS1 Positive (Negative)
[2025-11-09 16:12] LABS: EDCOVIDSCREEN Negative (Negative); EDINFLUASCREEN Negative (Negative); EDINFLUBSCREEN Negative (Negative)
== END 2025-11-09 16:17 | disposition home or self-care (01) ==
PROVIDERS: Emergency Provider Nurse Practitioner Family
DX: J02.0 Streptococcal pharyngitis (principal); F17.210 Nicotine dependence, cigarettes, uncomplicated; Z20.822 Contact with and (suspected) exposure to COVID-19
CPT/HCPCS: 87426; 87804; 87880; 99213; G0463